=== PATIENT | female | born 1950 | race Caucasian/White ===

== ENCOUNTER 2019-12-01 10:25 | Emergency (ER) | payer MEDICARE, SELFPAY ==
[2019-12-01 10:39] VITALS: BP 150/60; PULSE 73; RESP 18; TEMP 35.7
--- NOTE | 2019-12-01 10:52 | ED.HEATRA ---
HPI - Head Injury General Chief complaint: Head Injury Stated complaint: Head Injury Time Seen by Provider: 12/01/19 10:52 Source: patient and family Mode of arrival: ambulatory History of Present Illness HPI Narrative: Ayah Schmidt is a 69 yo female with a PMH of hypertension high cholesterol and diabetes, who fell this morning in the bathroom about 930. Has had her medications this morning Related Data Home Medications Medication Instructions Recorded Confirmed Magnesium 12/01/19 Multivitamin 12/01/19 Vitamin D 12/01/19 aspirin 12/01/19 fluoxetine mg 12/01/19 lisinopril 12/01/19 lovastatin mg 12/01/19 metformin mg 12/01/19 Allergies Allergy/AdvReac Type Severity Reaction Status Date / Time chlorthalidone Allergy Mild Rash Verified 09/12/18 15:17 codeine Allergy Unknown Verified 04/11/17 11:08 tramadol Allergy Unknown Verified 04/11/17 11:08 Review of Systems Review of Systems: Narrative: CONSTITUTIONAL: Denies fever, chills, sweats. EYES: Denies visual changes, redness, discharge. ENT: Denies rhinorrhea, congestion, sore throat, otalgia. CARDIOVASCULAR: Denies chest pain, palpitations, edema. RESPIRATORY: Denies dyspnea, wheezing, cough GASTROINTESTINAL: Denies abdominal pain, nausea, vomiting, diarrhea. GENITOURINARY: Denies dysuria, hematuria, abnormal discharge SKIN: Denies rash or itching. Laceration to left side of forehead MUSCULOSKELETAL: Denies acute back pain, joint pain, or myalgia. NEUROLOGIC: Denies numbness, or focal weakness. PSYCHIATRIC: Denies anxiety or depression. PMFSH Family History Family History Other Diabetes mellitus Social History Social History Smoking status: Never smoker Alcohol intake: never Comments At time of signature, I agree with nursing past medical, surgical, social and family history. There is no relevant family history pertinent to the presenting complaint. Exam Narrative: Exam Narrative: GENERAL: This is a well-nourished, well-developed patient, in no apparent distress. HEAD: normocephalic, traumatic. 3 cm less laceration to upper left forehead EYES: PERRL. Sclera clear/white. Vision is grossly intact. EARS: External ears normal, Hearing grossly intact. NOSE: External nose normal with no obvious nasal discharge, nares without redness, no rhinorrhea. THROAT: Mucous membranes moist, posterior pharynx clear. NECK: Neck supple, non-tender CARDIOVASCULAR: Regular rate and rhythm without murmurs, gallops, or rubs. RESPIRATORY: Clear to auscultation. Breath sounds equal bilaterally. No wheezes, rales, or rhonchi. GASTROINTESTINAL: Abdomen soft, non-tender, SKIN: warm, intact with no suspicious lesions or rash, good texture and turgor. NEURO: awake, alert, and oriented to person, place and time. There were no obvious focal neurologic abnormalities. Steady gait EXTREMITIES: Normal range of motion. No edema. BACK: Nontender without deformity or crepitance. Course Course Emergency Course: Laceration to forehead repaired, no tetanus is had 1 in the last year to 2-instructions given for care as well as mental status changes which would require her to go to the emergency room for scan Vital Signs Vital signs: Vital Signs Temperature 96.3 F L 12/01/19 10:39 Pulse Rate 73 12/01/19 10:39 Respiratory Rate 18 12/01/19 10:39 Blood Pressure 150/60 H 12/01/19 10:39 Temperature 96.3 F L 12/01/19 10:39 Pulse Rate 73 12/01/19 10:39 Respiratory Rate 18 12/01/19 10:39 Blood Pressure 150/60 H 12/01/19 10:39 Procedures Laceration Laceration 1: Date: 12/01/19 Time: 11:10 Site: scalp Side (If applicable): left Size (cm): 3 Description: linear Depth: simple, single layer Local Anesthetic: lidocaine 1% and with epi Amount of anesthesia used (mL): 3 =
--- NOTE | 2019-12-01 11:03 | PC.NURSE ---
suture set up was done. at 1054 pre planning advisor at bedside to do sutures.
== END 2019-12-01 11:25 | disposition home or self-care (01) ==
PROVIDERS: Emergency Provider Nurse Practitioner
DX: S01.01XA Laceration without foreign body of scalp, initial encounter (principal); W19.XXXA Unspecified fall, initial encounter; S09.90XA Unspecified injury of head, initial encounter; E78.00 Pure hypercholesterolemia, unspecified; I10 Essential (primary) hypertension; E11.9 Type 2 diabetes mellitus without complications
CPT/HCPCS: 12002; 99213; G0463

== ENCOUNTER 2022-08-26 17:35 | Inpatient (IN) | payer MEDICARE, SELFPAY ==
[2022-08-26] VITALS (13 sets, daily range): BP systolic 105–166; BP diastolic 63–90; PULSE 59–79; RESP 12–93; TEMP 36.4–36.8; O2SAT 16–100; BMI 16.7
--- NOTE | ~2022-08-26 | XR_ITS ---
EXAMINATION: XR barium swallow modified DATE: 08/28/2022 10:57 INDICATION: Dysphagia. TECHNIQUE: The patient was given barium-containing material of multiple consistencies to swallow by t lalita speech pathologist while I performed fluoroscopy. Dose-area product was 0.83 Gy-cm2. 2.1 minutes f luoroscopy time FINDINGS: Oral Stage: Reduced labial seal/lip tension and reduced lingual movement Pharyngeal Phase: Reduced laryngeal elevation and laryngeal abduction Reduced tongue base retraction Reduced pharyngeal squeeze Vallecular and piriform sinus and pharyngeal wall residue Cervical/Esophageal Stage: Within functional limits IMPRESSION: Modified esophagram findings as above. Please refer to the speech therapy report [facility] Reviewed, dictated and finalized at [facility]. Reviewed, dictated and finalized at location A. IMPRESSION: Modified esophagram findings as above. Please refer to the speech t herapy report for specific recommendations.
--- NOTE | ~2022-08-26 | XR_ITS ---
XR chest 2V DATE: 08/26/2022 18:58 INDICATION: Transient alteration of awareness. Weakness. TECHNIQUE: AP and lateral views. COMPARISON: None FINDINGS: Heart size is within normal range. Mild aortic unfolding. No hilar or mediastinal enlargeme nt. No pulmonary infiltrate or consolidation, pleural effusion or pulmonary vascular congestion or pn eumothorax. There is mild to moderate levoscoliosis of the thoracic spine. IMPRESSION: No active cardiopulmonary disease Reviewed, dictated and finalized at location A.
--- NOTE | ~2022-08-26 | US_ITS ---
EXAMINATION: US abdomen limited DATE: 08/29/2022 15:05 INDICATION: abnormal liver function tests TECHNIQUE: Multiple grayscale and Doppler ultrasound images of limited portions of the abdomen were o btained. COMPARISON: None available. FINDINGS: Exam limited by bowel gas, habitus, and mobility. Pancreas not visualized. The liver is nor mal with normal echogenicity and echotexture, although views were limited due to intercostal windows. No surface nodularity. Normal hepatopetal flow in the main portal vein. The gallbladder is normal wi th no abnormal wall thickening, pericholecystic fluid or stones. A left lateral decubitus view could not be obtained. The common bile duct measures 3 mm. There was no sonographic Mejía sign. IMPRESSION: Normal limited abdominal ultrasound findings. Reviewed, dictated and finalized at location K. IDER RELATIONS CONSULTANT
--- NOTE | ~2022-08-26 | XR_ITS ---
EXAMINATION: XR abdomen/kub 1V DATE: 08/30/2022 15:00 INDICATION: Abdominal distention pain. TECHNIQUE: A supine view of the abdomen was obtained. COMPARISON: None. FINDINGS: There is a large volume of stool in the colon. Stool distends the rectum. There is distenti on of the sigmoid and descending colon. The small bowel is normal in caliber. IMPRESSION: 1. Distended colon with large volume of stool, likely stool impaction. Reviewed, dictated and finalized at location A. GER
--- NOTE | ~2022-08-26 | CT_ITS ---
EXAMINATION: CT brain wo con DATE: 08/26/2022 22:31 INDICATION: Altered mental state. Hallucinations, increased sleeping. TECHNIQUE: Computed tomography (CT) of the head was performed without intravenous contrast. The mA wa s adjusted according to patient size. Iterative reconstruction technique was employed. Exam dose: 60 5.33 mGy-cm total exam DLP. COMPARISON: None FINDINGS: Vertebral artery, basilar artery and bilateral carotid siphon internal carotid artery calci fications. There is patchy nonspecific diminished attenuation of the cerebral white matter, likely due to chroni c small vessel ischemic changes. There is moderate central and cortical cerebral and mild cerebellar volume loss No intracranial mass lesion or hemorrhage or cerebrovascular accident, midline shift or mass effect i s noted. No subdural or epidural hematoma. No fracture or bone destruction of the cranial vault. Limited development of the right maxillary sinus. Normal left mastoid air cells. Included paranasal s inuses are unremarkable. IMPRESSION: Cerebral atherosclerosis and chronic small vessel ischemic changes of cerebral white mat ter Moderate cerebral and mild cerebellar volume loss No acute intracranial finding Reviewed, dictated and finalized at [facility]. Reviewed, dictated and finalized at location A. IMPRESSION: Cerebral atherosclerosis and chronic small vessel ischemic changes of cerebral white matter Moderate cerebral and mild cerebellar volume loss No acute intracranial finding
--- NOTE | 2022-08-26 18:08 | ECG_ITS ---
Measurements Intervals [place] Rate: 79 P: 87 NE: 178 QRS: -50 QRSD: 144 T: 102 QT: 403 QTc: 463 Interpretive Statements SINUS RHYTHM LEFT AXIS DEVIATION LEFT BUNDLE BRANCH BLOCK ANTEROSEPTAL INFARCT OR DUE TO LBBB BASELINE ARTIFACT- I, II, III, AVR, AVL, AVF ABNORMAL ECG NO PREVIOUS ECG AVAILABLE FOR COMPARISON Electronically Signed On 08-26-2022 19:07:05 CDT by Audi Padron D.O.
[2022-08-26 19:01] LABS: Basophils Absolute Auto 0.1 K/mm3 (0.0-0.1); Basophils Percent Auto 1.1 % (0.2-1.2); Eosinophils Absolute Auto 0.1 K/mm3 (0-0.3); Eosinophils Percent Auto 1.6 % (0-4.4); Hematocrit 37.2 % (37.0-47.0); Hemoglobin 12.3 g/dL (12.0-15.0); Immature Granulocyte Absolute 0.01 K/mm3 (0.00-0.031); Immature Granulocyte Percent A 0.2 % (0-0.5); Lymphocytes Absolute Auto 1.44 K/mm3 (0.9-3.2); Lymphocytes Percent Auto 22.5 % (18.3-44.2); Mean Corpuscular HGB Conc 33.1 g/dl (32-36); Mean Corpuscular Hemoglobin 32.4 pg (26-34); Mean Corpuscular Volume 97.9 fl (80-100); Mean Platelet Volume 10.3 fl (7.4-10.4); Monocytes Absolute Auto 0.5 K/mm3 (0.1-0.6); Monocytes Percent Auto 7.3 % (2.6-8.5); Neutrophils Absolute Auto 4.3 K/mm3 (1.3-6.7); Neutrophils Percent Auto 67.3 % (45.5-73.1); Platelet Count Result 175 k/mm3 (150-375); White Blood Count 6.4 K/mm3 (4.5-10.0)
[2022-08-26 19:11] LABS: Alanine Aminotransferase 37 U/L (6-35); Albumin Level 4.6 g/dL (3.5-5.1); Alkaline Phosphatase 112 U/L (38-126); Anion Gap 12 mmol/L (8-16); Aspartate Amino Transferase 44 U/L (14-36); Bilirubin,Total 0.9 mg/dL (0.2-1.3); Blood Urea Nitrogen 34 mg/dL (7-17); Calcium 9.7 mg/dL (8.4-10.2); Carbon Dioxide 31 mmol/L (22-30); Chloride 100 mmol/L (98-107); Estimated CRCL calculation 46 ml/min; Estimated Glomerular Filt Rate > 60; Glucose 91 mg/dL (65-110); Potassium 4.1 mmol/L (3.4-5.0); Sodium 143 mmol/L (137-145)
--- NOTE | 2022-08-26 19:15 | ED.AMS ---
HPI - Altered Mental Status General Chief Complaint: Altered Mental Status Stated Complaint: Sleeping Lots, Hallucinations Time Seen by Provider: 08/26/22 18:29 History of Present Illness HPI narrative: Patient is a 72-year-old female with a history of Parkinson's disease, hypertension, hyper lipidemia presenting with altered mental status. Patient's reports that she was diagnosed with a UTI about 5 days ago. She was discharged home on Keflex which she has been taking as prescribed. Patient's states that she continues to sleep a lot and continues to mumble random things that do not make sense. States that he is concerned that she has continued to decline over the last several weeks. They are concerned that she continues to have a UTI. Denies chest pain, abdominal pain, vomiting, diarrhea, dysuria. No focal weakness or numbness. Patient struggles to speak at baseline. Related Data Home Medications Medication Instructions Recorded Confirmed acetaminophen 500 mg capsule 500 mg PO Q6H PRN Pain (Scale 06/03/22 08/26/22 Score 1-3) ascorbate calcium (vitamin C) 500 500 mg PO DAILY 06/03/22 08/26/22 mg tablet aspirin 81 mg capsule 81 mg PO DAILY 06/03/22 08/26/22 biotin 10,000 mcg capsule 1,000 mcg PO DAILY 06/03/22 08/26/22 cholecalciferol (vitamin D3) 25 25 mcg PO DAILY 06/03/22 08/26/22 mcg (1,000 unit) capsule fluoxetine 40 mg capsule 40 mg PO DAILY 06/03/22 08/26/22 loratadine 10 mg tablet 10 mg PO DAILY 06/03/22 08/26/22 losartan 25 mg tablet 25 mg PO DAILY 06/03/22 08/26/22 lovastatin 40 mg tablet 40 mg PO DAILY 06/03/22 08/26/22 magnesium 250 mg tablet 400 mg PO DAILY 06/03/22 08/26/22 pdznodtazuri-Qf-uvov-minerals 18 1 tablet PO DAILY 06/03/22 08/26/22 mg-0.4 mg tablet Allergies Allergy/AdvReac Type Severity Reaction Status Date / Time chlorthalidone Allergy Mild Rash Verified 06/03/22 11:21 codeine Allergy Unknown Rash Verified 06/03/22 11:21 tramadol Allergy Unknown Rash Verified 06/03/22 11:21 Review of Systems Review of Systems: All systems reviewed & are unremarkable except as noted in HPI and below PMFSH Family History Family History Other Diabetes mellitus Social History Social History Smoking status: Never smoker Alcohol intake: never Substance use: never Spiritual care concerns: No Exam Narrative: GENERAL: Frail elderly female laying in bed, no acute distress HEAD: Normocephalic, atraumatic. EYES: PERRLA and EOMI. ENT: Nares clear, no rhinorrhea or epistaxis. Mucous membranes moist. NECK: Supple. CHEST: Clear to auscultation. No respiratory distress. HEART: Regular rate and rhythm. No murmur heard. Normal peripheral pulses. ABDOMEN: Soft, nontender, nondistended, normal active bowel sounds. EXTREMITIES: Normal range of motion. No edema. SKIN: Warm, dry, no rash. NEURO: Moves all extremities spontaneously, some dysarthria that is baseline PSYCH: Normal mood and affect. Course Vital Signs Vital signs: Vital Signs Temperature 98.3 F 08/26/22 17:43 Pulse Rate 79 08/26/22 17:43 Respiratory Rate 20 08/26/22 17:43 Blood Pressure 105/65 08/26/22 17:43 Pulse Oximetry 93 08/26/22 17:43 Oxygen Delivery Room Air 08/26/22 17:43 Temperature 98.2 F 08/29/22 14:00 Pulse Rate 80 08/29/22 14:00 Respiratory Rate 18 08/29/22 14:00 Blood Pressure 103/48 L 08/29/22 14:00 Pulse Oximetry 97 08/29/22 14:00 Oxygen Delivery Room Air 08/29/22 07:45 MDM - Altered Mental Status MDM Narrative Medical decision making narrative: Patient is a 72-year-old female presenting with altered mental status. Vitals within normal limits. Exam remarkable for the above. Blood work is noncontributory. UA does not indicate a UTI. Sounds like patient has become progressively weaker and her is having difficulty taking care of
[2022-08-26] MEDS: SODIUM CHLORIDE 0.9% IV 1,000 ML 999 ML IV CONT (19:28)
[2022-08-26 20:55] LABS: Appearance Urine Clear (Clear); Bilirubin Urine Negative (Negative); Blood Urine Negative (Negative); Color Urine Yellow (Yellow); Glucose Urine UA Negative (Negative); Ketones Urine Trace mg/dL (Negative); Leukocyte Esterase Ur Negative LEU/UL (Negative); Nitrate Urine Negative (Negative); Protein Urine Negative (Negative); Specific Grav Ur 1.025 (1.001-1.035); Urobilinogen Urine 0.2 mg/dL (<2.0)
[2022-08-26 20:59] LABS: Mucus Urine Rare /lpf; RBC Urine 0-2 /hpf (0-2); Squamous Epithelial Cell Urine Rare /hpf (Few); WBC Urine 0-3 /hpf
[2022-08-26 21:06] LABS: Add Urine Microscopic? YES
--- NOTE | 2022-08-26 22:37 | PM.IMHP ---
H&P: HPI History of Present Illness Date/Time: 08/26/22 22:37 Chief Complaint: generalized weakness Narrative: This is a 72-year-old female with past medical history significant for Parkinson's disease, dementia, patient recently treated for urinary tract infection as per he is noted patient has had overall decline in functioning with generalized weakness unable to walk unable to eat has had poor per orally intake in the last few days or so has noted weight loss as well and has been laying in bed for prolonged periods of time she is about to end a course of Keflex which he was prescribed for urinary tract infection. history has been obtained mainly from who is at bedside patient has not been able to give any history. Preliminary workup has been essentially nonrevealing. a repeat urinalysis was clean a chest x-ray was clear. IMPRESSION: No active cardiopulmonary disease? CT of the head was reported as: IMPRESSION:? Cerebral atherosclerosis and chronic small vessel ischemic changes of cerebral white matter Moderate cerebral and mild cerebellar volume loss No acute intracranial finding Review of Systems Review of Systems: ROS unobtainable: Yes unobtainable due to mental status ( lethargic) [facility], [facility] Family History Family History Other Diabetes mellitus Social History Social History Smoking status: Never smoker Alcohol intake: never Substance use: never Spiritual care concerns: No Meds Home Medications and Allergies Home Medications Medication Instructions Recorded Confirmed Type acetaminophen 500 mg capsule 500 mg PO Q6H PRN Pain (Scale 06/03/22 08/26/22 History Score 1-3) ascorbate calcium (vitamin C) 500 500 mg PO DAILY 06/03/22 08/26/22 History mg tablet aspirin 81 mg capsule 81 mg PO DAILY 06/03/22 08/26/22 History biotin 10,000 mcg capsule 1,000 mcg PO DAILY 06/03/22 08/26/22 History cholecalciferol (vitamin D3) 25 25 mcg PO DAILY 06/03/22 08/26/22 History mcg (1,000 unit) capsule fluoxetine 40 mg capsule 40 mg PO DAILY 06/03/22 08/26/22 History loratadine 10 mg tablet 10 mg PO DAILY 06/03/22 08/26/22 History losartan 25 mg tablet 25 mg PO DAILY 06/03/22 08/26/22 History lovastatin 40 mg tablet 40 mg PO DAILY 06/03/22 08/26/22 History magnesium 250 mg tablet 400 mg PO DAILY 06/03/22 08/26/22 History mxdcfrihunwu-Zf-pdja-minerals 18 1 tablet PO DAILY 06/03/22 08/26/22 History mg-0.4 mg tablet Allergies Allergy/AdvReac Type Severity Reaction Status Date / Time chlorthalidone Allergy Mild Rash Verified 06/03/22 11:21 codeine Allergy Unknown Rash Verified 06/03/22 11:21 tramadol Allergy Unknown Rash Verified 06/03/22 11:21 Vital Signs Vital Signs - 24 hr 08/26/22 17:43 08/26/22 19:44 08/26/22 20:00 Temperature 98.3 F Pulse Rate 79 79 65 Respiratory Rate 20 12 14 Blood Pressure 105/65 134/71 141/90 H Pulse Oximetry 93 94 100 Oxygen Delivery Room Air 08/26/22 20:15 Temperature Pulse Rate 61 Respiratory Rate 16 Blood Pressure 165/73 H Pulse Oximetry 100 Oxygen Delivery Exam Narrative: patient is laying in a stretcher Const: General: comfortable, no acute distress, well developed, alert, awake, ill appearing chronically, lethargic and cachectic Nutritional Appearance: average body habitus Orientation/consciousness: patient oriented x3 HENMT: Head: normal to inspection, normocephalic and atraumatic Ears: hearing grossly normal bilaterally Face/Nose/Sinus: normal facial exam Face and sinus: normal facial exam Eyes: General: appearance normal, both eyes and all related structures Pupils: Equal, round and reactive pupils present EOM: EOMs intact bilaterally Neck: Neck: full ROM, no lymphadenopathy and no JVD Thyroid: thyroid normal Lymphatic: no lymphadenopathy noted Resp: Effort & Inspection: normal respiratory effort and
[2022-08-26 22:47] LABS: SARS-CoV-2 RNA PCR Negative
--- NOTE | 2022-08-26 23:23 | ADMGEN ---
This patient, Ayah Schmidt, was admitted to Medical Room [facility]- at 2305. Patient/family oriented to hospital policies and general routines including ID bracelet, bed and alarms, visiting hours, pain management, procedures, bathroom and other care routines, personal items, smoking policy, room service/diet, and visiting hours. Information on how to activate the Rapid Response Team has been discussed. Patient/Family are encouraged to report perceived risks to care and to ask questions if they do not understand what they are told or what they should do.
[2022-08-27 06:07] VITALS: BP 136/74; PULSE 66; RESP 14; TEMP 36.4; O2SAT 97
[2022-08-27 11:30] LABS: Creatine Kinase 43 U/L (30-135)
--- NOTE | 2022-08-27 12:00 | PM.IMPN ---
Progress Note: A&P Assessment and Plan (1) Failure to thrive: Status: Acute Assessment and Plan: patient with overall decline poor per orally intake will likely benefit from a sniff placement as family unable to care for her at home supportive care PT OT consult 07/27/2022 interval history: patient remains weak and tired, apprears chronically sick and undernourish, thinking she may statin related myopathy however her CK level is normal,, will have PT OT evaluate the as well as speech therapy for swallow study, will consult dietitian patient may need nutritional supplement, there is also concern patient may have malignancy and may need further evaluation, and to monitor (2) Dysphagia: Code(s): R13.10 - Dysphagia, unspecified Status: Acute Assessment and Plan: patient it is every seen pureed but has to be the right consistency will obtain a speech eval (3) Protein calorie malnutrition: Code(s): E46 - Unspecified protein-calorie malnutrition Status: Acute Assessment and Plan: poor per orally intake will do a calorie count (4) Dementia: Code(s): F03.90 - Unspecified dementia, unspecified severity, without behavioral disturbance, psychotic disturbance, mood disturbance, and anxiety Status: Acute Assessment and Plan: patient with advanced dementia however on no meds (5) Wheelchair bound: Code(s): Z99.3 - Dependence on wheelchair Status: Acute Assessment and Plan: functional quad Subjective Date/time seen: Chief Complaint: ?generalized weakness HPI-Narrative: ?This is a 72-year-old female with past medical history significant for Parkinson's disease, dementia, patient recently treated for urinary tract infection as per he is noted patient has had overall decline in functioning with generalized weakness unable to walk unable to eat has had poor per orally intake in the last few days or so has noted weight loss as well and has been laying in bed? for prolonged periods of time she is about to? end a course of Keflex which he was prescribed for urinary tract infection. history has been obtained mainly from who is at bedside patient has not been able to give any history.? Preliminary workup has been essentially nonrevealing. a repeat urinalysis was clean a chest x-ray was clear. IMPRESSION: No active cardiopulmonary disease? ?CT of the head was reported as: IMPRESSION:? Cerebral atherosclerosis and chronic small vessel ischemic changes of cerebral white matter Moderate cerebral and mild cerebellar volume loss No acute intracranial finding 07/27/2022 interval history: patient remains weak and tired, apprears chronically sick and undernourish, thinking she may statin related myopathy however her CK level is normal,, will have PT OT evaluate the as well as speech therapy for swallow study, will consult dietitian patient may need nutritional supplement, there is also concern patient may have malignancy and may need further evaluation, and to monitor Review of Systems Review of Systems: ROS unobtainable: Yes unobtainable due to mental status ( lethargic) Exam Narrative: appears under nourished Patient is comfortable, NAD HEENT: eyes are clear and none icteric LUNGS: normal respiratory effort ABD: not distended Lower extremities: no edema SKIN: nonjaundiced Neuro: grossly intact. Objective Data Vital Signs Vital Signs: Vital Signs - 24 hr 08/26/22 17:43 08/26/22 19:44 08/26/22 20:00 Temperature 98.3 F Pulse Rate 79 79 65 Respiratory Rate 20 12 14 Blood Pressure 105/65 134/71 141/90 H Pulse Oximetry 93 94 100 Oxygen Delivery Room Air 08/26/22 20:15 08/26/22 20:30 08/26/22 20:45 Temperature Pulse Rate 61 59 L 70 Respiratory Rate 16 15 14 Blood Pressure 165/73 H 137/84 148/80 H Pulse Oximetry 100 100 Oxygen Delivery 08/26/22 21:00 08/26/22 21:15 08/26/22 21:30 Temperature Pu
--- NOTE | 2022-08-27 12:57 | PCSTNOTE ---
Bedside swallow evaluation. Patient cooperative but distractible and unable to provide reliable information about her prior level. Patient showed no signs of aspiration with pureed consistency by spoon. Patient coughed after 3 ml spoonful of water and also after uncontrolled water bolus from cup Patient states she is thirsty and wants to drink a lot of liquids. Recommendation: mildly thickened liquids (level 2) and soft and bite sized diet (level 6). Patient needs assistance during meals as she has difficulty feeding herself. Modified barium swallow study recommended. Thank you for the referral of this patient.
[2022-08-27 14:23] VITALS: BMI 16.7
[2022-08-27 14:24] VITALS: BP 124/72; PULSE 75; RESP 14; TEMP 36.7; O2SAT 96
--- NOTE | 2022-08-27 15:06 | PCNSR ---
On 08/27/22, the student, Phoenix Aiken, provided care and completed [facility] [place] documentation on this patient. I have reviewed the student's documentation and agree with the findings.
[2022-08-27 21:39] VITALS: BP 143/70; PULSE 68; RESP 18; TEMP 36.2; O2SAT 96
[2022-08-28 03:40] LABS: Glucose Point of Care 70 mg/dl (65-105)
[2022-08-28 04:50] LABS: Glucose Point of Care 68 mg/dl (65-105)
--- NOTE | 2022-08-28 05:00 | PC.NURSE ---
Checked patients blood sugar @ 0336 due to pt being NPO for several hours and blood sugar was 70, Dr. Kovacs was paged three seperate times with no response. I then rechecked patients blood sugar at 0446 and it was 68, was paged again with no response.
[2022-08-28] MEDS: DEXTROSE 50% 25 GM/50 ML SYRINGE IV PUSH (05:23)
[2022-08-28 06:00] VITALS: BP 119/64; PULSE 69; RESP 18; TEMP 36.2; O2SAT 96
[2022-08-28 06:02] LABS: Glucose Point of Care 137 mg/dl (65-105)
[2022-08-28] MEDS: DEXTROSE 10% 1,000 ML 65 ML IV CONT (06:12)
[2022-08-28 10:18] LABS: Anion Gap 10 mmol/L (8-16); Blood Urea Nitrogen 26 mg/dL (7-17); Calcium 9.1 mg/dL (8.4-10.2); Carbon Dioxide 30 mmol/L (22-30); Chloride 100 mmol/L (98-107); Estimated CRCL calculation 44 ml/min; Estimated Glomerular Filt Rate > 60; Glucose 134 mg/dL (65-110); Potassium 3.5 mmol/L (3.4-5.0); Sodium 140 mmol/L (137-145)
--- NOTE | 2022-08-28 11:40 | PCSTNOTE ---
Modified barium swallow study. Patient alert and attentive. Reduce labial and lingual strength and coordination, reduced pharyngeal elevation and vocal fold adduction. No penetration or aspiration observed. Patient showed possible fatigue factor by 4th trial. Current diet texture of pureed and liquid consistency of moderately thickened (level 3, honey) remains appropriate. However, thick and sticky pureed foods should be thinned slightly or avoided. This includes items such as mashed potatoes, oatmeal, and similar textures. Strict adherence to swallowing precautions recommended. No further speech therapy recommended at this time, as patient is at baseline. Thank you for the referral of this patient.
--- NOTE | 2022-08-28 12:01 | PM.IMPN ---
Progress Note: A&P Assessment and Plan (1) Failure to thrive: Status: Acute Assessment and Plan: patient with overall decline poor per orally intake will likely benefit from a sniff placement as family unable to care for her at home supportive care PT OT consult 07/28/2022 interval history: patient remains weak and tired, apprears chronically sick and undernourish, thinking she may statin related myopathy however her CK level is normal,, will have PT OT evaluate the as well as speech therapy for swallow study today patient had MBS study patient is able to eat modified diet to help her swallow, , will consult dietitian patient may need nutritional supplement, there is also concern patient may have malignancy and may need further evaluation, and will continue to monitor (2) Dysphagia: Code(s): R13.10 - Dysphagia, unspecified Status: Acute Assessment and Plan: patient it is every seen pureed but has to be the right consistency will obtain a speech eval (3) Protein calorie malnutrition: Code(s): E46 - Unspecified protein-calorie malnutrition Status: Acute Assessment and Plan: poor per orally intake will do a calorie count (4) Dementia: Code(s): F03.90 - Unspecified dementia, unspecified severity, without behavioral disturbance, psychotic disturbance, mood disturbance, and anxiety Status: Acute Assessment and Plan: patient with advanced dementia however on no meds (5) Wheelchair bound: Code(s): Z99.3 - Dependence on wheelchair Status: Acute Assessment and Plan: functional quad Subjective Date/time seen: 08/28/22 12:01 07/28/2022 interval history: patient remains weak and tired, apprears chronically sick and undernourish, thinking she may statin related myopathy however her CK level is normal,, will have PT OT evaluate the as well as speech therapy for swallow study today patient had MBS study patient is able to eat modified diet to help her swallow, , will consult dietitian patient may need nutritional supplement, there is also concern patient may have malignancy and may need further evaluation, and will continue to monitor Review of Systems Review of Systems: ROS unobtainable: Yes unobtainable due to mental status ( lethargic) Exam Narrative: appears under nourished Patient is comfortable, NAD HEENT: eyes are clear and none icteric LUNGS: normal respiratory effort ABD: not distended Lower extremities: no edema SKIN: nonjaundiced Neuro: grossly intact. Objective Data Vital Signs Vital Signs: Vital Signs - 24 hr 08/27/22 14:24 08/27/22 14:48 08/27/22 21:39 Temperature 98.1 F 97.2 F L Pulse Rate 75 68 Respiratory Rate 14 18 Blood Pressure 124/72 143/70 H Pulse Oximetry 96 96 Oxygen Delivery Room Air 08/27/22 21:00 08/28/22 06:00 08/28/22 08:20 Temperature 97.1 F L Pulse Rate 69 Respiratory Rate 18 Blood Pressure 119/64 Pulse Oximetry 96 Oxygen Delivery Room Air Room Air Intake/Output Intake/Output: Intake & Output 08/25/22 08/26/22 08/27/22 08/28/22 23:59 23:59 23:59 23:59 Intake Total 1000 460 Output Total 100 450 Balance 900 10 Meds/Results Medications: Active Medications Generic Name Dose Route Start Last Admin Trade Name Freq PRN Reason Stop Dose Admin Acetaminophen 500 mg 08/27/22 10:39 Acetaminophen 500 Mg Tablet PO Q6H PRN Pain (Scale Score 1-3) Ascorbic Acid 500 mg 08/28/22 09:00 08/28/22 08:15 Ascorbic Acid 500 Mg Tablet PO Not Given DAILY ROBYN Aspirin 81 mg 08/27/22 09:00 08/28/22 08:15 Aspirin 81 Mg Chewable Tablet PO 09/27/22 08:59 Not Given DAILY ROBYN Dextrose 12.5 gm 08/28/22 05:01 08/28/22 05:23 Dextrose 50% 25 Gm/50 Ml Syringe IV PUSH 12.5 gm PRN PRN Administration Hypoglycemia Protocol Fluoxetine HCl 40 mg 08/28/22 09:00 08/28/22 08:15 Fluoxetine Hcl 20 Mg Capsule PO
[2022-08-28 12:26] LABS: Glucose Point of Care 101 mg/dl (65-105)
[2022-08-28 14:00] VITALS: BP 115/67; PULSE 76; RESP 14; TEMP 36.8; O2SAT 98
[2022-08-28 18:04] LABS: Glucose Point of Care 159 mg/dl (65-105)
[2022-08-28 21:31] VITALS: BP 101/67; PULSE 74; RESP 18; TEMP 36.5; O2SAT 95
[2022-08-28 22:00] VITALS: BP 143/78; PULSE 68; RESP 18; TEMP 36.2; O2SAT 96
[2022-08-28 22:06] LABS: Glucose Point of Care 246 mg/dl (65-105)
[2022-08-29 01:53] LABS: Glucose Point of Care 205 mg/dl (65-105)
[2022-08-29 06:00] VITALS: BP 121/65; PULSE 65; RESP 20; TEMP 36.6; O2SAT 98
[2022-08-29 06:36] LABS: Hematocrit 35.3 % (37.0-47.0); Hemoglobin 11.6 g/dL (12.0-15.0); Mean Corpuscular HGB Conc 32.9 g/dl (32-36); Mean Corpuscular Hemoglobin 32.1 pg (26-34); Mean Corpuscular Volume 97.8 fl (80-100); Mean Platelet Volume 10.3 fl (7.4-10.4); Platelet Count Result 143 k/mm3 (150-375); Red Blood Count 3.61 M/mm3 (4.2-5.4); Red Cell Distribution Width 12.9 % (11.5-14.5)
[2022-08-29 06:38] LABS: Glucose Point of Care 110 mg/dl (65-105)
[2022-08-29 06:53] LABS: Magnesium 1.9 mg/dL (1.6-2.3)
[2022-08-29 08:38] LABS: Glucose Point of Care 104 mg/dl (65-105)
[2022-08-29] MEDS: CHOLECALCIFEROL 1,000 UNITS TABLET 1000 UNITS PO (10:16)
[2022-08-29] MEDS: FLUoxetine HCL 20 MG CAPSULE 40 MG PO (10:16)
[2022-08-29] MEDS: ASPIRIN 81 MG CHEWABLE TABLET PO (10:16)
[2022-08-29] MEDS: THERAPEUTIC MULTIVITAMINS/MINERALS TAB (*BKC) 1 TABLET PO (10:16)
[2022-08-29] MEDS: MAGNESIUM OXIDE 400 MG TABLET PO (10:16)
[2022-08-29] MEDS: LOSARTAN POTASSIUM 25 MG TABLET PO (10:16)
[2022-08-29] MEDS: ASCORBIC ACID 500 MG TABLET PO (10:16)
[2022-08-29] MEDS: LORATADINE 10 MG TABLET PO (10:17)
[2022-08-29] MEDS: LOVASTATIN 20 MG TABLET 40 MG PO (10:17)
--- NOTE | 2022-08-29 11:07 | PM.IMPN ---
Progress Note: A&P Assessment and Plan (1) Failure to thrive: Status: Acute Assessment and Plan: patient with overall decline poor per orally intake will likely benefit from a sniff placement as family unable to care for her at home supportive care PT OT consult 08/28/2022 interval history: patient remains weak and tired, apprears chronically sick and undernourish, thinking she may statin related myopathy however her CK level is normal,, will have PT OT evaluate the as well as speech therapy for swallow study today patient had MBS study patient is able to eat modified diet to help her swallow, , will consult dietitian patient may need nutritional supplement, there is also concern patient may have malignancy and may need further evaluation, and will continue to monitor 08/29/22: A better with pureed diet. More alert. Check TSH and morning cortisol all. Given abnormal LFTs checked hepatitis screen and right upper quadrant ultrasound. Given relatively high dose fluoxetine and no prior history of mental illness prior to 2 years ago, discussed with family and initiate trial of medication reduction. (2) Parkinson disease: Code(s): G20 - Parkinson's disease Status: Acute Assessment and Plan: Discussed with family at bedside that dysphagia is a sign of end-stage parkinsonism. Discussed that palliative care or hospice would be appropriate when she reaches the point of being unable to tolerate pureed diet. Currently however she is doing relatively well with a pureed diet. Discussed the because she is already unable to get out of bed on her own and must use a wheelchair when helped out of bed she is likely not a candidate for rehab services as an outpatient. Discussed the relentlessly progressive nature of Parkinson's disease. (3) Dysphagia: Code(s): R13.10 - Dysphagia, unspecified Status: Acute Assessment and Plan: Likely due to advanced Parkinson's disease not responsive to carbidopa and levodopa or amantadine August 29 doing better with pureed diet. (4) Protein calorie malnutrition: Code(s): E46 - Unspecified protein-calorie malnutrition Status: Acute Assessment and Plan: Continue pureed diet. (5) Wheelchair bound: Code(s): Z99.3 - Dependence on wheelchair Status: Acute Assessment and Plan: functional quad Subjective Date/time seen: 08/29/22 11:07 Elderly female with history of Parkinson's disease has declined over the last several months. She has not been able to walk for the last 18 months. She is incontinent of urine about half the time. Continent of stool. Not able to get out of bed by herself. Decreased appetite and weight loss. Some difficulty with swallowing. Doing better with pureed diet. Ate all of her breakfast this morning. Has remained alert and oriented to person place and time except when she had a UTI which she was treated a couple of weeks ago through [facility]. She did have a tria of amantadine in the recent past and had adverse effects from that with increased hallucinations. Has baseline hallucinations both visual and auditory. But no memory issues. Talks in her sleep. Has tried carbidopa levodopa through [facility] physician's Neurology. No benefit from that in the past. She was treated with Prozac 40 mg daily for depression starting 2 years ago or so. Her mood seems to have improved since then. No attempt to taper or discontinue the medicine since initiation. No prior history of mental illness. 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 There also far from her family most of home live in [place]. Review of Systems Review of Systems: All systems reviewed & are unremarkable except as noted in HPI and below Exam Narrative: Frail elderly female lying comfortably in her hospital
[2022-08-29 11:58] LABS: Glucose Point of Care 191 mg/dl (65-105)
[2022-08-29 14:00] VITALS: BP 103/48; PULSE 80; RESP 18; TEMP 36.8; O2SAT 97
[2022-08-29 16:44] LABS: Glucose Point of Care 226 mg/dl (65-105)
[2022-08-29 20:41] VITALS: BP 105/53; PULSE 78; RESP 18; TEMP 36.5; O2SAT 98
[2022-08-30 00:48] LABS: Glucose Point of Care 192 mg/dl (65-105)
[2022-08-30 05:23] LABS: Hemoglobin 11.3 g/dL (12.0-15.0); Mean Corpuscular HGB Conc 32.3 g/dl (32-36); Mean Corpuscular Volume 99.2 fl (80-100); Mean Platelet Volume 10.2 fl (7.4-10.4); Platelet Count Result 154 k/mm3 (150-375); Red Blood Count 3.53 M/mm3 (4.2-5.4); Red Cell Distribution Width 13.1 % (11.5-14.5); White Blood Count 7.3 K/mm3 (4.5-10.0)
[2022-08-30 05:26] VITALS: BP 95/47; PULSE 72; RESP 18; TEMP 36.6; O2SAT 97
[2022-08-30 06:07] LABS: Alanine Aminotransferase 45 U/L (6-35); Albumin Level 3.7 g/dL (3.5-5.1); Alkaline Phosphatase 100 U/L (38-126); Anion Gap 10 mmol/L (8-16); Aspartate Amino Transferase 43 U/L (14-36); Bilirubin,Total 0.6 mg/dL (0.2-1.3); Blood Urea Nitrogen 52 mg/dL (7-17); Calcium 8.9 mg/dL (8.4-10.2); Carbon Dioxide 30 mmol/L (22-30); Chloride 102 mmol/L (98-107); Estimated CRCL calculation 39 ml/min; Estimated Glomerular Filt Rate > 60; Glucose 142 mg/dL (65-110); Magnesium 2.1 mg/dL (1.6-2.3); Potassium 4.1 mmol/L (3.4-5.0); Sodium 142 mmol/L (137-145)
[2022-08-30 06:39] LABS: Folic Acid > 20.0 ng/mL (2.76->20); Vitamin B12 > 1000.0 pg/mL (239-931)
[2022-08-30 06:57] LABS: Hepatitis B Surface Antigen Negative (Negative)
[2022-08-30 07:02] LABS: HAV RESULT Negative (Negative)
[2022-08-30 08:15] VITALS: BP 106/52; PULSE 73; RESP 14; TEMP 36.9; O2SAT 98
[2022-08-30] MEDS: ASPIRIN 81 MG CHEWABLE TABLET PO (08:48)
[2022-08-30] MEDS: ASCORBIC ACID 500 MG TABLET PO (08:48)
[2022-08-30] MEDS: LOVASTATIN 20 MG TABLET 40 MG PO (08:48)
[2022-08-30] MEDS: LOSARTAN POTASSIUM 25 MG TABLET PO (08:48)
[2022-08-30] MEDS: CHOLECALCIFEROL 1,000 UNITS TABLET 1000 UNITS PO (08:48)
[2022-08-30] MEDS: FLUoxetine HCL 10 MG CAPSULE PO (08:48)
[2022-08-30] MEDS: MAGNESIUM OXIDE 400 MG TABLET PO (08:48)
[2022-08-30] MEDS: LORATADINE 10 MG TABLET PO (08:48)
[2022-08-30] MEDS: THERAPEUTIC MULTIVITAMINS/MINERALS TAB (*BKC) 1 TABLET PO (09:18)
[2022-08-30 12:17] LABS: Glucose Point of Care 152 mg/dl (65-105)
--- NOTE | 2022-08-30 13:09 | PM.IMPN ---
Progress Note: A&P Assessment and Plan (1) Failure to thrive: Status: Acute Assessment and Plan: Patient with overall decline and poor orally intake prior to admission. Continue supportive care. PT/OT consulted Speech therapy consulted 08/28/2022 patient remains weak and tired, appears chronically sick and undernourish, thinking she may statin related myopathy however her CK level is normal, will consult dietitian patient may need nutritional supplement, there is also concern patient may have malignancy and may need further evaluation, and will continue to monitor 08/29/22: A better with pureed diet. More alert. Check TSH and morning cortisol. Given abnormal LFTs checked hepatitis screen and right upper quadrant ultrasound. Given relatively high dose fluoxetine and no prior history of mental illness prior to 2 years ago, discussed with family and initiate trial of medication reduction. 08/30/2022 patient frail and weak, sitting up in a chair for meals, family reports patient has been eating more and she is tolerating dysphagia diet. TSH 2.34 and within normal limits. Cortisol 16 and within normal limits this morning. Vitamin B12 and folate within normal limits. 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 Patient has been seen by [facility] neurology. Per notes fast progression associated with dementia and early without wheelchair use suggests PSP. Referral to palliative care was recommended by neurologist. (3) Parkinson disease: Code(s): G20 - Parkinson's disease Status: Chronic Assessment and Plan: Chronic, progressive. Patient is with dementia, decreased mobility, and dysphagia. She has been seen by a neurologist at [facility] as above. Patient reportedly did not respond to 1200 mg of levodopa per day. Symptoms thought to be likely to progressive supranuclear palsy per neurology. Recommendations were made to keep the patient comfortable and referral to palliative care as above. During patient's hospital stay it was discussed with family at bedside that dysphagia is a sign of end-stage parkinsonism. Discussed that palliative care or hospice would be appropriate when she reaches the point of being unable to tolerate pureed diet. Currently however she is doing relatively well with a pureed diet. Discussed the because she is already unable to get out of bed on her own and must use a wheelchair when helped out of bed she is likely not a candidate for rehab services as an outpatient. (4) Dysphagia: Qualifiers: Dysphagia type: unspecified Qualified Code(s): R13.10 - Dysphagia, unspecified Code(s): R13.10 - Dysphagia, unspecified Status: Acute Assessment and Plan: Likely due to advanced Parkinson's disease not responsive to carbidopa and levodopa or amantadine 08/30/2022 patient tolerating pureed diet with honey thickened liquids. Continue aspiration precautions. (5) Protein calorie malnutrition: Qualifiers: Protein-calorie malnutrition severity: severe Qualified Code(s): E43 - Unspecified severe protein-calorie malnutrition Code(s): E46 - Unspecified protein-calorie malnutrition Status: Acute Assessment and Plan: Continue pureed diet. Dietary consulted and appreciate recommendations. (6) Wheelchair bound: Code(s): Z99.3 - Dependence on wheelchair Status: Chronic Assessment and Plan: Chronic, continue up to chair for all meals. (7) HTN (hypertension): Code(s): I10 - Essential (primary) hypertension Status: Chronic Assessment and Plan: Chronic, BP 95/647 to 106/52, heart rate 73 Continue losartan, but hold if SBP less than 100 (8) High cholesterol: Code(s): E78.00 - Pure hypercholesterolemia, unspecified Status: Ch
[2022-08-30 14:00] VITALS: BP 104/57; PULSE 73; RESP 14; TEMP 36.7; O2SAT 98
[2022-08-30 18:08] LABS: Glucose Point of Care 160 mg/dl (65-105)
[2022-08-30] MEDS: BISACODYL 10 MG SUPPOSITORY RECTAL (18:52)
[2022-08-30 20:52] VITALS: BP 97/55; PULSE 77; RESP 18; TEMP 37.1; O2SAT 97
[2022-08-30 23:30] LABS: Glucose Point of Care 204 mg/dl (65-105)
[2022-08-31 04:18] VITALS: BP 108/54; PULSE 68; RESP 18; TEMP 36.6; O2SAT 95
[2022-08-31 05:07] LABS: Glucose Point of Care 153 mg/dl (65-105)
[2022-08-31 05:43] LABS: Hematocrit 32.8 % (37.0-47.0); Hemoglobin 10.7 g/dL (12.0-15.0); Mean Corpuscular HGB Conc 32.6 g/dl (32-36); Mean Corpuscular Hemoglobin 33.1 pg (26-34); Mean Corpuscular Volume 101.5 fl (80-100); Mean Platelet Volume 10.2 fl (7.4-10.4); Platelet Count Result 138 k/mm3 (150-375); Red Blood Count 3.23 M/mm3 (4.2-5.4); Red Cell Distribution Width 13.2 % (11.5-14.5); White Blood Count 6.5 K/mm3 (4.5-10.0)
[2022-08-31 06:08] LABS: Anion Gap 7 mmol/L (8-16); Blood Urea Nitrogen 62 mg/dL (7-17); Calcium 8.9 mg/dL (8.4-10.2); Carbon Dioxide 31 mmol/L (22-30); Chloride 103 mmol/L (98-107); Estimated CRCL calculation 35 ml/min; Estimated Glomerular Filt Rate > 60; Glucose 145 mg/dL (65-110); Magnesium 2.3 mg/dL (1.6-2.3); Potassium 4.1 mmol/L (3.4-5.0); Sodium 141 mmol/L (137-145)
[2022-08-31] MEDS: FLUoxetine HCL 10 MG CAPSULE PO (09:08)
[2022-08-31] MEDS: CHOLECALCIFEROL 1,000 UNITS TABLET 1000 UNITS PO (09:08)
[2022-08-31] MEDS: LOSARTAN POTASSIUM 25 MG TABLET PO (09:08)
[2022-08-31] MEDS: LOVASTATIN 20 MG TABLET 40 MG PO (09:08)
[2022-08-31] MEDS: ASPIRIN 81 MG CHEWABLE TABLET PO (09:08)
[2022-08-31] MEDS: ASCORBIC ACID 500 MG TABLET PO (09:08)
[2022-08-31] MEDS: THERAPEUTIC MULTIVITAMINS/MINERALS TAB (*BKC) 1 TABLET PO (09:08)
[2022-08-31] MEDS: MAGNESIUM OXIDE 400 MG TABLET PO (09:08)
[2022-08-31 09:22] VITALS: RESP 18; O2SAT 95
[2022-08-31 12:29] LABS: Glucose Point of Care 171 mg/dl (65-105)
--- NOTE | 2022-08-31 12:52 | PM.DS ---
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 supranuclear ophthalmoplegia [Carlita] Status: Chronic (3) Parkinson disease: Code(s): G20 - Parkinson's disease Status: Chronic (4) Dysphagia: Qualifiers: Dysphagia type: unspecified Qualified Code(s): R13.10 - Dysphagia, unspecified Code(s): R13.10 - Dysphagia, unspecified Status: Acute (5) Protein calorie malnutrition: Qualifiers: Protein-calorie malnutrition severity: severe Qualified Code(s): E43 - Unspecified severe protein-calorie malnutrition Code(s): E46 - Unspecified protein-calorie malnutrition Status: Acute (6) Wheelchair bound: Code(s): Z99.3 - Dependence on wheelchair Status: Chronic (7) HTN (hypertension): Qualifiers: Hypertension type: primary hypertension Qualified Code(s): I10 - Essential (primary) hypertension Code(s): I10 - Essential (primary) hypertension Status: Chronic (8) High cholesterol: Code(s): E78.00 - Pure hypercholesterolemia, unspecified Status: Chronic (9) Diabetes: Qualifiers: Diabetes mellitus type: type 2 Diabetes mellitus complication status: without complication Diabetes mellitus prison insulin use: without medical terminologist use Qualified Code(s): E11.9 - Type 2 diabetes mellitus without complications Code(s): E11.9 - Type 2 diabetes mellitus without complications Status: Chronic (10) Constipation: Qualifiers: Constipation type: slow transit constipation Qualified Code(s): K59.01 - Slow transit constipation Code(s): K59.00 - Constipation, unspecified Status: Acute DS: Summary Hospital Course Reason for hospitalization: Generalized weakness Hospital Course: Ayah Schmidt is a 72-year-old female with Parkinson disease, hypertension, progressive supranuclear palsy, and non-insulin dependent diabetes. She presented to the ED for evaluation of generalized weakness. Her reported, the patient recently was treated for urinary tract infection and he noted she had an overall decline in functioning with generalized weakness, unable to walk, and unable to eat. She has had poor per orally intake in the for a few days pror to admission and had noticeable weight loss, as well. She had been laying in bed for prolonged periods of time. Preliminary workup in the ED, was unremarkable. A repeat urinalysis was without evidence of infection and chest x-ray was without acute disease. CT head was without acute findings, but did snow moderate cerebral and mild cerebellar volume loss. She was admitted to the medical floor for further evaluation of generalized weakness and failure to thrive. Failure to thrive & Protein calorie malnutrition Patient with overall decline and poor orally intake prior to admission. PT/OT consulted Speech therapy was consulted and the patient required honey thickened liquids and pureed diet. 08/28/2022?patient remained weak and tired, appeared chronically sick and undernourish. CK level was normal making statin related myopathy less likely. Dietitian was consulted for nutritional assessment and nutritional ice cream was added. TSH, cortisol, folate and B12 level were within normal limits. Hepatitis panel was negative and RUQ ultrasound was without abnormality despite mildly elevated LFTs. Her fluoxetine was lowered due to her relatively high dose and no prior history of mental illness prior to 2 years ago, discussed with family and initiate trial of medication reduction. Family reported the patient was eating more and tolerating dysphagia diet.?Family wanted to the take the patient sagar
[2022-09-01 15:54] LABS: Hepatitis C Viral RNA PCR <15 IU/mL
== END 2022-08-31 14:00 | disposition home health service (06) | DRG 57 ==
LOC: ANHED 18:29 → ANH2MED 22:27
PROVIDERS: Family Medicine; Internal Medicine; Admitting Provider Internal Medicine; Emergency Provider Emergency Medicine; PCP Emergency Medicine; Visit Provider Nurse Practitioner Family
DX: G23.1 Progressive supranuclear ophthalmoplegia [Steele-Richardson-Olszewski] (principal); Z68.1 Body mass index [BMI] 19.9 or less, adult; E46 Unspecified protein-calorie malnutrition; R62.7 Adult failure to thrive; G20 Parkinson's disease; I10 Essential (primary) hypertension; E78.5 Hyperlipidemia, unspecified; E11.9 Type 2 diabetes mellitus without complications; R13.10 Dysphagia, unspecified; F03.90 Unspecified dementia, unspecified severity, without behavioral disturbance, psychotic disturbance, mood disturbance, and anxiety; Z20.822 Contact with and (suspected) exposure to COVID-19; Z79.82 Long term (current) use of aspirin; Z99.3 Dependence on wheelchair
CPT/HCPCS: 36415; 51701; 70450; 71046; 74018; 76705; 80048; 80053; 81001; 82533; 82550; 82607; 82746; 82948; 83735; 84443; 85025; 85027; 86709; 87340; 87522; 92610; 93005; 96360; 96361; 96365; 96366; 96376; 97110; 97161; 97165; 97530; 97535; 99285; A9270; G0378; J7030; U0003; U0005

== ENCOUNTER → 2022-10-08 11:00 | Outpatient (CLI) | payer MEDICARE, SELFPAY ==
--- NOTE | ~2022-10-08 | XR_ITS ---
EXAMINATION: XR facial bones min 3V DATE: 10/08/2022 11:26 INDICATION: Face injury. Pain. TECHNIQUE: 7 views of the facial bones were obtained. COMPARISON: Head CT 08/26/2022 FINDINGS: Bone alignment is normal. No fracture. IMPRESSION: 1. No fracture. Reviewed, dictated and finalized at location A. [employer] IMPRESSION: 1. No fracture.
== END ==
PROVIDERS: PCP Family Medicine Adolescent Medicine; Visit Provider Family Medicine Adolescent Medicine
DX: H11.30 Conjunctival hemorrhage, unspecified eye (principal); S00.83XA Contusion of other part of head, initial encounter; X58.XXXA Exposure to other specified factors, initial encounter
CPT/HCPCS: 70150

== ENCOUNTER 2023-01-25 16:37 | Emergency (ER) | payer MEDICARE, SELFPAY ==
[2023-01-25 16:47] VITALS: BP 99/43; PULSE 95; RESP 16; TEMP 36.6; O2SAT 99
--- NOTE | 2023-01-25 17:15 | ED.GENADULT ---
HPI - General Adult General Chief complaint: Urogenital-Female Stated complaint: uti Time Seen by Provider: 01/25/23 17:15 Source: patient, family (), RN notes reviewed and old records reviewed Mode of arrival: ambulatory Limitations: no limitations History of Present Illness HPI narrative: 72-year-old female presents to the [facility] with her with concerns of and not urinating since yesterday. States that she only had 16 oz of her smoothie yesterday morning. Has not eaten anything else. Has increased swelling to bilateral lower extremities. Patient very limited due to Parkinson's disease in communication. Patient denies any pain. Onset (ago): day(s) (2) Related Data Home Medications Medication Instructions Recorded Confirmed ascorbate calcium (vitamin C) 500 500 mg PO DAILY 06/03/22 01/25/23 mg tablet aspirin 81 mg capsule 81 mg PO DAILY 06/03/22 01/25/23 biotin 10,000 mcg capsule 1,000 mcg PO DAILY 06/03/22 01/25/23 cholecalciferol (vitamin D3) 25 25 mcg PO DAILY 06/03/22 01/25/23 mcg (1,000 unit) capsule lovastatin 40 mg tablet 40 mg PO DAILY 06/03/22 01/25/23 magnesium 250 mg tablet 400 mg PO DAILY 06/03/22 01/25/23 [id number]-Rj-omxt-minerals 18 1 tablet PO DAILY 06/03/22 01/25/23 mg-0.4 mg tablet amantadine HCl 100 mg capsule 100 mg PO BID 09/06/22 01/25/23 quetiapine 25 mg tablet mg 01/25/23 Allergies Allergy/AdvReac Type Severity Reaction Status Date / Time chlorthalidone Allergy Mild Rash Verified 01/25/23 16:58 codeine Allergy Unknown Rash Verified 01/25/23 16:58 tramadol Allergy Unknown Rash Verified 01/25/23 16:58 Review of Systems Review of Systems: All systems reviewed & are unremarkable except as noted in HPI and below Constitutional: Constitutional: Reports as per HPI, Reports fatigue, Reports lethargy, Reports poor appetite and Reports weakness Eyes: Eyes: Reports no additional eye complaints ENT: Reports system reviewed and no additional complaints, except as documented Cardiovascular: Cardiovascular: Reports no additional cardiovascular complaints, Denies chest pain and Denies dyspnea Respiratory: Respiratory: Reports no additional respiratory complaints, Denies chest congestion, Denies cough and Denies dyspnea Gastrointestinal: Gastrointestinal: Reports no additional gastrointestinal complaints, Denies abdominal pain, Denies nausea and Denies vomiting Musculoskeletal: Musculoskeletal: Reports no additional musculoskeletal complaints Integumentary/Breasts: Skin/Breast: Reports system reviewed and no additional complaints, except as docu Neurologic: Reports system reviewed and no additional complaints, except as documented Psychiatric: Psychiatric: Reports no additional psychiatric complaints Allergic/Immunologic: Allergic/Immunologic: Reports no additional allergic/immunologic complaints PMFSH Past Medical History Medical History Allergic rhinitis Bilateral foot-drop Depression Diabetes Dysarthria High cholesterol HTN (hypertension) Lumbar spinal stenosis Parkinson disease Progressive supranuclear palsy Vitamin D deficiency Surgical History Surgical History History of appendectomy History of arthroscopic surgery of shoulder left shoulder S/P ORIF (open reduction internal fixation) fracture Right lower leg Family History Family History Father Asthma Heart disease Mother Ovarian cancer Other Acute myocardial infarction Diabetes mellitus Social History Social History Smoking status: Never smoker Alcohol intake: never Substance use: never Living arrangements: with family Additional living arrangements comments: Lives at home with and youngest son. Occupation/Education: unemployed Gender identity (if josh
== END 2023-01-25 17:32 | disposition short-term general hospital (02) ==
PROVIDERS: Emergency Provider Nurse Practitioner
DX: R62.7 Adult failure to thrive (principal); Z68.1 Body mass index [BMI] 19.9 or less, adult; G20 Parkinson's disease; E11.9 Type 2 diabetes mellitus without complications; E78.00 Pure hypercholesterolemia, unspecified; I10 Essential (primary) hypertension; M48.061 Spinal stenosis, lumbar region without neurogenic claudication; E55.9 Vitamin D deficiency, unspecified; Z79.82 Long term (current) use of aspirin
CPT/HCPCS: 99212; G0463

== ENCOUNTER 2023-01-25 18:01 | Observation (INO) | payer MEDICARE, SELFPAY ==
--- NOTE | ~2023-01-25 | XR_ITS ---
MODIFIED ESOPHAGRAM HISTORY: Parkinson's disease and difficulty swallowing. TECHNIQUE: Modified barium esophagram was performed on 01/26/2023. I administered fluoroscopy and perfo rmed the exam with speech pathologist. Patient was seated for lateral fluoroscopic imaging for inges tion of thin liquids, pudding, solids and quantified amounts, followed by thin liquids in uncontrolle d amounts. This was recorded on tape. A single fluoroscopic spot image was also recorded. The DAP for this procedure was 4 Gycm2. The amount of fluoroscopy time used during this procedure was 4.4 minute s. FINDINGS: Oral stage: Delayed transit time with oral and lingual residue.. Pharyngeal stage: There is delayed initiation of each swallow with reduced laryngeal elevation, abduc tion, tongue base retraction and pharyngeal squeeze. There is residue the vallecula and piriform sinu ses. Laryngeal penetration resulting from backflow into the vestibule with large amount of liquid but which clears without aspiration. Cervical/esophageal stage: Adequate function. IMPRESSION: Oral pharyngeal dysphagia with laryngeal penetration with larger volumes. Please correla te with speech pathologist findings and specific feeding recommendations. Reviewed, dictated and finalized at location A. IMPRESSION: Oral pharyngeal dysphagia with laryngeal penetration with larger vo lumes. Please correlate with speech pathologist findings and specific feeding recommendations.
--- NOTE | ~2023-01-25 | XR_ITS ---
EXAMINATION: XR chest 2V Exam Date/Time: 01/25/2023 20:20 CDT HISTORY: failure to thrive. POSSIBLE UTI. Comparison: 08/26/2022. RESULT: Lines, tubes, and devices: None. Lungs and pleura: Senescent changes, otherwise clear. Cardiomediastinal silhouette: Stable. Other: No acute osseous or upper abdominal finding. IMPRESSION: No acute cardiopulmonary process. Reviewed, dictated and finalized at location K.
[2023-01-25 18:04] VITALS: BP 96/51; PULSE 71; RESP 20; TEMP 37.1; O2SAT 93
--- NOTE | 2023-01-25 19:16 | ECG_ITS ---
Measurements Intervals [place] Rate: 77 P: 76 ID: [id number] QRS: -53 QRSD: 154 T: 92 QT: 410 QTc: 466 Interpretive Statements SINUS RHYTHM WITH FIRST DEGREE AV BLOCK MARKED LEFT AXIS DEVIATION [QRS AXIS < -30] LEFT BUNDLE BRANCH BLOCK [120+ ms QRS DURATION, 80+ ms Q/S IN V1/V2, 85+ ms R IN I/aVL/V5/V6] ABNORMAL ECG COMPARED TO ECG 08/26/2022 18:01:18 FIRST DEGREE AV BLOCK NOW PRESENT Electronically Signed On 01-26-2023 13:47:10 CDT by Keyru Castañeda M.D.
[2023-01-25 21:26] LABS: Basophils Absolute Auto 0.1 K/mm3 (0.0-0.1); Basophils Percent Auto 1.2 % (0.2-1.2); Eosinophils Absolute Auto 0.1 K/mm3 (0-0.3); Hematocrit 40.4 % (37.0-47.0); Hemoglobin 13.3 g/dL (12.0-15.0); Immature Granulocyte Absolute 0.01 K/mm3 (0.00-0.031); Immature Granulocyte Percent A 0.2 % (0-0.5); Lymphocytes Absolute Auto 1.98 K/mm3 (0.9-3.2); Lymphocytes Percent Auto 40.7 % (18.3-44.2); Mean Corpuscular HGB Conc 32.9 g/dl (32-36); Mean Corpuscular Hemoglobin 33.3 pg (26-34); Mean Platelet Volume 9.7 fl (7.4-10.4); Monocytes Absolute Auto 0.4 K/mm3 (0.1-0.6); Monocytes Percent Auto 7.6 % (2.6-8.5); Neutrophils Absolute Auto 2.4 K/mm3 (1.3-6.7); Neutrophils Percent Auto 49.3 % (45.5-73.1); Platelet Count Result 155 k/mm3 (150-375); White Blood Count 4.9 K/mm3 (4.5-10.0)
[2023-01-25 21:37] LABS: Alanine Aminotransferase 42 U/L (6-35); Albumin Level 4.6 g/dL (3.5-5.1); Alkaline Phosphatase 98 U/L (38-126); Anion Gap 5 mmol/L (8-16); Aspartate Amino Transferase 35 U/L (14-36); Bilirubin,Total 0.7 mg/dL (0.2-1.3); Blood Urea Nitrogen 36 mg/dL (7-17); Calcium 9.7 mg/dL (8.4-10.2); Carbon Dioxide 35 mmol/L (22-30); Chloride 98 mmol/L (98-107); Estimated Glomerular Filt Rate > 60; Glucose 105 mg/dL (65-110); Potassium 4.4 mmol/L (3.4-5.0); Sodium 138 mmol/L (137-145)
[2023-01-25 22:46] LABS: Appearance Urine Cloudy (Clear); Bacteria Urine 4+ /hpf; Bilirubin Urine Negative (Negative); Blood Urine Negative (Negative); Color Urine Yellow (Yellow); Glucose Urine UA Negative (Negative); Ketones Urine Trace mg/dL (Negative); Leukocyte Esterase Ur 1+ LEU/UL (Negative); Need Manual Microscopic Reviewed; Nitrate Urine Positive (Negative); Non Pathogenic Casts 0-2; Protein Urine Negative (Negative); RBC Urine >100 /hpf (0-2); Specific Grav Ur 1.015 (1.001-1.035); Squamous Epithelial Cell Urine None seen /hpf (Few); pH Urine 6.5 (5.0-9.0)
[2023-01-25 22:49] LABS: Add Urine Microscopic? YES
[2023-01-26] VITALS (7 sets, daily range): BP systolic 112–152; BP diastolic 53–90; PULSE 60–84; RESP 14–18; TEMP 36.6–37; O2SAT 87–100; BMI 16.7
--- NOTE | 2023-01-26 00:05 | ED.GENADULT ---
HPI - General Adult General Chief complaint: Weakness Stated complaint: weakness and decreased appetite - sent from Time Seen by Provider: 01/25/23 22:57 History of Present Illness HPI narrative: This is a 72-year-old female with Parkinson's presenting to ED for weakness and decreased appetite. Over the last several days the patient has stopped eating and drinking. She says is because she is having difficulty swallowing. Her noticed that she felt slightly warm to the touch and that when she awoke this morning her diaper was dry which is abnormal for her. There have been no aspiration events.He took her to an urgent care with a were concerned for dehydration. He then brought her to the hospital. The patient has seen Dr. De Santiago in the past for the difficulty swallowing. At that time there was some discussion about G-tube placement but they had not gone ahead with the procedure at that point. Related Data Home Medications Medication Instructions Recorded Confirmed ascorbate calcium (vitamin C) 500 500 mg PO DAILY 06/03/22 01/25/23 mg tablet aspirin 81 mg capsule 81 mg PO DAILY 06/03/22 01/25/23 biotin 10,000 mcg capsule 1,000 mcg PO DAILY 06/03/22 01/25/23 cholecalciferol (vitamin D3) 25 25 mcg PO DAILY 06/03/22 01/25/23 mcg (1,000 unit) capsule lovastatin 40 mg tablet 40 mg PO DAILY 06/03/22 01/25/23 magnesium 250 mg tablet 400 mg PO DAILY 06/03/22 01/25/23 ssxepsbynywg-Tp-xnmc-minerals 18 1 tablet PO DAILY 06/03/22 01/25/23 mg-0.4 mg tablet amantadine HCl 100 mg capsule 100 mg PO BID 09/06/22 01/25/23 quetiapine 25 mg tablet mg 01/25/23 Allergies Allergy/AdvReac Type Severity Reaction Status Date / Time chlorthalidone Allergy Mild Rash Verified 01/25/23 18:02 codeine Allergy Unknown Rash Verified 01/25/23 18:02 tramadol Allergy Unknown Rash Verified 01/25/23 18:02 [facility] Past Medical History Medical History Allergic rhinitis Bilateral foot-drop Depression Diabetes Dysarthria High cholesterol HTN (hypertension) Lumbar spinal stenosis Parkinson disease Progressive supranuclear palsy Vitamin D deficiency Surgical History Surgical History History of appendectomy History of arthroscopic surgery of shoulder left shoulder S/P ORIF (open reduction internal fixation) fracture Right lower leg Family History Family History Father Asthma Heart disease Mother Ovarian cancer Other Acute myocardial infarction Diabetes mellitus Social History Social History Smoking status: Never smoker Alcohol intake: never Substance use: never Living arrangements: with family Additional living arrangements comments: Lives at home with and youngest son. Occupation/Education: unemployed Gender identity (if verbalized by the patient): Female Spiritual care concerns: No Exam Narrative: APPEARANCE: No apparent distress. A&O x4, patient is emaciated Head: atraumatic. EYES: EOMI, NOSE: Atraumatic NECK: Trachea midline RESPIRATORY: No increased rate of breathing CARDIOVASCULAR: RRR, chronic edema lower extremities ABDOMINAL: Non-distended MUSCULOSKELETAl: No obvious deformities, contracted NEURO: Alert. Moving 4/4 extremities SKIN:: Warm, dry. Normal color PSYCHIATRIC: Normal affect Course Vital Signs Vital signs: Vital Signs Temperature 98.7 F 01/25/23 18:04 Pulse Rate 71 01/25/23 18:04 Respiratory Rate 20 01/25/23 18:04 Blood Pressure 96/51 L 01/25/23 18:04 Pulse Oximetry 93 01/25/23 18:04 Oxygen Delivery Room Air 01/25/23 18:04 Temperature 98.7 F 01/25/23 18:04 Pulse Rate 71 01/25/23 18:04 Respiratory Rate 20 01/25/23 18:04 Blood Pressure 96/51 L 01/25/23 18:04 Pulse Oximetry 93 01/25/23 18:04 Oxygen [employer]
--- NOTE | 2023-01-26 01:01 | PM.IMHP ---
H&P: HPI History of Present Illness Date/Time: 01/26/23 01:01 Chief Complaint: Generalized weakness Narrative: This is a 72-year-old female with past medical history significant for Parkinson's disease, patient is bed ridden and wheelchair-bound, weight loss, poor per oral intake, patient was brought to the emergency room for evaluation due to spouse is concerned about worsening of her per orally intake usually her meals are pureed and liquefied with chicken broth or beef broth however patient is able to eat pureed as well noted that patient was leaning to the side and very weak unable to feed herself in the last couple of days or so and also noted to be warm to the touch. Most of the history has been obtained from who is at bedside. Preliminary workup was significant for urinalysis with numerous RBCs and WBCs present. Patient is known to have urinary tract infections in the past. Patient has been admitted for further evaluation management and treatment. Review of Systems Review of Systems: ROS unobtainable: Yes unobtainable due to medical condition (Debilitation, Parkinson's.) [facility] Past Medical History Medical History Allergic rhinitis Bilateral foot-drop Depression Diabetes Dysarthria High cholesterol HTN (hypertension) Lumbar spinal stenosis Parkinson disease Progressive supranuclear palsy Vitamin D deficiency Surgical History Surgical History History of appendectomy History of arthroscopic surgery of shoulder left shoulder S/P ORIF (open reduction internal fixation) fracture Right lower leg Family History Family History Father Asthma Heart disease Mother Ovarian cancer Other Acute myocardial infarction Diabetes mellitus Social History Social History Smoking status: Never smoker Alcohol intake: never Substance use: never Living arrangements: with family Additional living arrangements comments: Lives at home with and youngest son. Occupation/Education: unemployed Gender identity (if verbalized by the patient): Female Spiritual care concerns: No Meds Home Medications and Allergies Home Medications Medication Instructions Recorded Confirmed Type ascorbate calcium (vitamin C) 500 500 mg PO DAILY 06/03/22 01/25/23 History mg tablet aspirin 81 mg capsule 81 mg PO DAILY 06/03/22 01/25/23 History biotin 10,000 mcg capsule 1,000 mcg PO DAILY 06/03/22 01/25/23 History cholecalciferol (vitamin D3) 25 25 mcg PO DAILY 06/03/22 01/25/23 History mcg (1,000 unit) capsule lovastatin 40 mg tablet 40 mg PO DAILY 06/03/22 01/25/23 History magnesium 250 mg tablet 400 mg PO DAILY 06/03/22 01/25/23 History obcpescwmrxa-Qv-jwvk-minerals 18 1 tablet PO DAILY 06/03/22 01/25/23 History mg-0.4 mg tablet amantadine HCl 100 mg capsule 100 mg PO BID 09/06/22 01/25/23 History fluoxetine 10 mg capsule (Prozac) 10 mg PO QAM #90 caps 09/20/22 01/25/23 Rx quetiapine 25 mg tablet mg 01/25/23 History Allergies Allergy/AdvReac Type Severity Reaction Status Date / Time chlorthalidone Allergy Mild Rash Verified 01/25/23 18:02 codeine Allergy Unknown Rash Verified 01/25/23 18:02 tramadol Allergy Unknown Rash Verified 01/25/23 18:02 Vital Signs Vital Signs - 24 hr 01/25/23 18:04 Temperature 98.7 F Pulse Rate 71 Respiratory Rate 20 Blood Pressure 96/51 L Pulse Oximetry 93 Oxygen Delivery Room Air Exam Narrative: Patient is laying in a stretcher Const: General: comfortable, no acute distress, well developed, alert, awake, ill appearing, cachectic and other (Generalized muscle atrophy) Nutritional Appearance: average body habitus Orientation/consciousness: oriented to person and oriented to place HENMT: Head: normal to inspection, normocephalic, atrau
[2023-01-26 01:22] LABS: Influenza A QL RT-PCR Negative (Negative); Influenza B QL RT-PCR Negative (Negative); RSV RNA, RT-PCR Negative (Negative); SARS-CoV-2 RNA PCR Negative
[2023-01-26] MEDS: LACTATED RINGERS 1,000 ML 75 ML IV CONT ×2 (01:42→17:14)
--- NOTE | 2023-01-26 02:51 | ADMGEN ---
This patient, Ayah Schmidt, was admitted to Medical Room 245-. Patient/family oriented to hospital policies and general routines including ID bracelet, bed and alarms, visiting hours, pain management, procedures, bathroom and other care routines, personal items, smoking policy, room service/diet, and visiting hours. Information on how to activate the Rapid Response Team has been discussed. Patient/Family are encouraged to report perceived risks to care and to ask questions if they do not understand what they are told or what they should do.
--- NOTE | 2023-01-26 03:18 | PC.NURSE ---
Spoke with Rell r/gisela home medication list. states he will bring copy in with him in the morning as there are too many to name off.
--- NOTE | 2023-01-26 09:34 | PCSTNOTE ---
Please refer to the Modified Barium Swallow Evaluation in the EMR.
--- NOTE | 2023-01-26 13:37 | PC.NURSE ---
On 01/26/23, the student, [Alvina Alicea], provided care and completed [facility] documentation on this patient. I have reviewed the student's documentation and agree with the findings.
--- NOTE | 2023-01-26 15:48 | WPDGICN ---
Assessment and Plan Assessment and plan (1) Protein calorie malnutrition: Qualifiers: Protein-calorie malnutrition severity: severe Qualified Code(s): E43 - Unspecified severe protein-calorie malnutrition Code(s): E46 - Unspecified protein-calorie malnutrition Status: Acute Assessment and Plan: she is here after last few days with more weakness than usual and lethargic but found to have UTI and started on treatment She was seeing by Dr De Santiago few months ago, she has been eating special pureed diet and plan was to await on tube feeding placement patient was just started on antibiotics, she would like to wait on G-tube placement. I expect that will respon to antibiotics and probably will be back to her baseline will keep monitoring during her hospital stay (2) Adult failure to thrive: Code(s): R62.7 - Adult failure to thrive Status: Acute (3) Dysphagia: Code(s): R13.10 - Dysphagia, unspecified Status: Acute Assessment and Plan: from parkinson on special diet (4) Acute UTI: Code(s): N39.0 - Urinary tract infection, site not specified Status: Acute Assessment and Plan: on treatment (5) Parkinson's disease: Code(s): G20 - Parkinson's disease Status: Acute (6) Progressive supranuclear palsy: Code(s): G23.1 - Progressive supranuclear ophthalmoplegia [Carlita] Status: Chronic GI Consult Note Consult date/time: 01/26/23 15:48 HPI: Ayah Schmidt is a 72 year old female ?She has severe Parkinson's syndrome she has apparently some dementia.? She has been seen by [facility] neurology for supranuclear ophthalmoplegia.? They also treat her Parkinson's disease.? She had lost about 100 lb over the last year and she has seen Dr De Santiago in the office on 09/2022, she actually was eating pureed diet with assistance and maintaining her weight, decision was to hold off on G-tube placement. This time she is here patient after spouse got concerned about worsening of her oral intake and generalized weakness but she was found to have UTI again, started on antibiotics. Review of Systems Review of Systems: All systems reviewed & are unremarkable except as noted in HPI and below Constitutional: Constitutional: Reports as per HPI, Reports fatigue, Reports lethargy, Reports poor appetite and Reports weakness Eyes: Eyes: Reports no additional eye complaints ENT: Reports system reviewed and no additional complaints, except as documented Cardiovascular: Cardiovascular: Reports no additional cardiovascular complaints, Denies chest pain and Denies dyspnea Respiratory: Respiratory: Reports no additional respiratory complaints, Denies chest congestion, Denies cough and Denies dyspnea Gastrointestinal: Gastrointestinal: Reports no additional gastrointestinal complaints, Denies abdominal pain, Denies nausea and Denies vomiting Musculoskeletal: Musculoskeletal: Reports no additional musculoskeletal complaints Integumentary/Breasts: Skin/Breast: Reports system reviewed and no additional complaints, except as docu Neurologic: Comments: parkinson Psychiatric: Psychiatric: Reports no additional psychiatric complaints Allergic/Immunologic: Allergic/Immunologic: Reports no additional allergic/immunologic complaints PMFSH Past Medical History Medical History Allergic rhinitis Bilateral foot-drop Depression Diabetes Dysarthria High cholesterol HTN (hypertension) Lumbar spinal stenosis Parkinson disease Progressive supranuclear palsy Vitamin D deficiency Surgical History Surgical History History of appendectomy History of arthroscopic surgery of shoulder left shoulder S/P ORIF (open reduction internal fixation) fracture Right lower leg Family History Family History (Reviewed 01/26/23 @ 00:09 by Malgorzata
--- NOTE | 2023-01-26 15:49 | PM.IMPN ---
Progress Note: A&P Assessment and Plan (1) Acute UTI: Code(s): N39.0 - Urinary tract infection, site not specified Status: Acute Assessment and Plan: Patient presented with abnormal urinalysis on presentation with a decreased urinary output and poor p.o. intake. Continue IV ceftriaxone while awaiting urine cultures. Supportive care (2) Dysphagia: Code(s): R13.10 - Dysphagia, unspecified Status: Acute Assessment and Plan: Patient with history of dysphagia maintained on pureed diet at home. Typically does well with this but unable to tolerate oral intake at home over the past 1-2 days. Participated in speech therapy today and demonstrated penetration with thin liquids and slow oral transit. Recommendations for. Diet with mildly thickened liquids. Continue speech therapy. GI has been consulted for consideration of PEG tube. Hopefully as patient has urinary tract infection improves, she will begin tolerating more oral intake, however patient and POA are comfortable with PEG tube placement if this becomes medically necessary (3) Parkinson's disease: Code(s): G20 - Parkinson's disease Status: Acute Assessment and Plan: Chronic, unchanged. (4) Progressive supranuclear palsy: Code(s): G23.1 - Progressive supranuclear ophthalmoplegia [[id number]-Mdvgvqodb] Status: Chronic Assessment and Plan: Chronic and unchanged, established with specialist at [facility]. (5) Protein calorie malnutrition: Qualifiers: Protein-calorie malnutrition severity: severe Qualified Code(s): E43 - Unspecified severe protein-calorie malnutrition Code(s): E46 - Unspecified protein-calorie malnutrition Status: Acute Assessment and Plan: Severe malnutrition secondary to poor oral intake. Continue with dietary modifications and ensure enive t.i.d. (6) Wheelchair bound: Code(s): Z99.3 - Dependence on wheelchair Status: Chronic Assessment and Plan: Cared for at home by . At functional baseline at this time Time Spent With Patient Time: 50 minutes Time with patient: Greater than 35 minutes Subjective Date/time seen: 01/26/23 15:49 Interval history: Date of service: 01/26/2023 Ayah Schmidt is a 72-year-old female with a history of hypertension, Parkinson's disease, progressive supranuclear palsy, dementia, type 2 diabetes mellitus, and dysphagia maintained on pureed diet who is seen in follow-up for UTI. The patient's states that about 1 month ago the patient was started on new medication due to hallucinations it was working well and the patient was no longer having hallucinations until yesterday. At that time he was concerned something was wrong because she does also get hallucinations when she has urinary tract infections. He noticed that she was having more trouble eating and was not able to tolerate much oral intake. He also stated that she was not making as much urine and he was concerned she was dehydrated. He states that at baseline, the patient has no function in her lower extremities. She is bed-bound and he will get her out of her bed and into a wheelchair will she will sit and watch TV. She is able to feed herself but he prepares her meals. She is incontinent. The patient is A&O x3 but not able to provide much useful history. She states that she is feeling well. She denies any pain. Review of Systems Review of Systems: ROS unobtainable: Yes unobtainable due to mental status Exam Narrative: General: Thin, chronically ill-appearing 72-year-old female, sitting up in bed leaning to the right side, comfortable, NARD Neuro: awake, alert and oriented x3, speech clear, no focal neuro deficits noted, exhibits confusion HEENMT: normocephalic, atraumatic, EOMI, sclerae anicteric Respiratory: clear to auscultation bilaterally, nonlabored breathing Cardio: regula
[2023-01-26] MEDS: AMANTADINE HCL 100 MG CAPSULE PO (17:29)
[2023-01-27 05:29] LABS: Hematocrit 37.3 % (37.0-47.0); Hemoglobin 12.2 g/dL (12.0-15.0); Mean Corpuscular HGB Conc 32.7 g/dl (32-36); Mean Corpuscular Hemoglobin 32.8 pg (26-34); Mean Corpuscular Volume 100.3 fl (80-100); Mean Platelet Volume 9.7 fl (7.4-10.4); Platelet Count Result 143 k/mm3 (150-375); Red Blood Count 3.72 M/mm3 (4.2-5.4); Red Cell Distribution Width 12.8 % (11.5-14.5); White Blood Count 5.6 K/mm3 (4.5-10.0)
[2023-01-27 05:39] LABS: Anion Gap 6 mmol/L (8-16); Blood Urea Nitrogen 28 mg/dL (7-17); Calcium 9.3 mg/dL (8.4-10.2); Carbon Dioxide 32 mmol/L (22-30); Chloride 103 mmol/L (98-107); Estimated CRCL calculation 41 ml/min; Estimated Glomerular Filt Rate > 60; Glucose 130 mg/dL (65-110); Potassium 4.4 mmol/L (3.4-5.0); Sodium 141 mmol/L (137-145)
--- NOTE | 2023-01-27 06:37 | PC.NURSE ---
RECEIVED CALL FROM LAB AND TOOK CRITICAL RESULTS FOR NURSE ADA WHILE SHE WAS WITH A PATIENT. + BLOOD CULTURES.
[2023-01-27 06:57] VITALS: BP 131/71; PULSE 74; RESP 14; TEMP 36.6; O2SAT 98
[2023-01-27] MEDS: AMANTADINE HCL 100 MG CAPSULE PO ×2 (09:06→16:54)
[2023-01-27] MEDS: ASCORBIC ACID 500 MG TABLET 1000 MG PO (09:06)
[2023-01-27] MEDS: ASPIRIN 81 MG CHEWABLE TABLET PO (09:06)
[2023-01-27] MEDS: THERAPEUTIC MULTIVITAMINS/MINERALS TAB (*BKC) 1 TABLET PO (09:07)
[2023-01-27] MEDS: FLUoxetine HCL 10 MG CAPSULE PO (09:07)
[2023-01-27] MEDS: LOVASTATIN 20 MG TABLET 40 MG PO (09:07)
[2023-01-27] MEDS: CHOLECALCIFEROL 1,000 UNITS TABLET 1000 UNITS PO (09:07)
--- NOTE | 2023-01-27 11:29 | PCCCNOTE ---
[facility] Confirms full name and . Asking if patient is still OBS or IP. When patient becomes IP they only hold for 24 hours. Confirmed at this time that patient is still OBS but rounds have not occurred today. [facility] requested H&P to be fax'd. Fax'd as requested.
--- NOTE | 2023-01-27 12:51 | WPDGIPROGNO ---
Progress Note: A&P Assessment and Plan (1) Parkinson's disease: Code(s): G20 - Parkinson's disease Status: Acute Assessment and Plan: Patient with chronic Parkinson's disease which is wearing on her. Continue treatment as previously outlined. (2) Dysphagia: Code(s): R13.10 - Dysphagia, unspecified Status: Acute Assessment and Plan: Dysphagia improving. Likely improving with strength now that urinary tract infection is being treated. Plan to allow oral intake. She apparently had difficulties when she was weak after urinary tract infection caused admission. Disposition per primary care service. Recommend eating with head of bed elevated. Soft diet advised. PEG tube likely can be avoided. (3) Acute UTI: Code(s): N39.0 - Urinary tract infection, site not specified Status: Acute Assessment and Plan: Currently being treated by antibiotics. Under the direction of primary care service. (4) Protein calorie malnutrition: Qualifiers: Protein-calorie malnutrition severity: severe Qualified Code(s): E43 - Unspecified severe protein-calorie malnutrition Code(s): E46 - Unspecified protein-calorie malnutrition Status: Acute Subjective Date/time seen: 01/27/23 12:51 Interval history: Patient lying in bed. Appears more alert today. Seen today in the absence of Dr. Griffiths. Patient now afebrile. Tolerating soft diet since yesterday. Able to eat without coughing or choking. Son who is assisting her today states she is able to feed herself. Review of Systems Review of Systems: ROS unobtainable: Yes unobtainable due to mental status Exam Narrative: Physical exam reveals patient be alert. Sitting in bed. HEENT exam reveals no icterus. Lungs are clear. Heart without murmur. Abdomen benign. Objective Data Vital Signs Vital Signs: Vital Signs - 24 hr 01/26/23 14:00 01/26/23 20:59 01/26/23 20:00 Temperature 97.8 F 97.9 F Pulse Rate 64 84 84 Respiratory Rate 14 16 16 Blood Pressure 112/53 L 121/66 Pulse Oximetry 87 L 98 98 Oxygen Delivery Room Air 01/27/23 06:57 01/27/23 09:00 Temperature 97.8 F Pulse Rate 74 Respiratory Rate 14 Blood Pressure 131/71 Pulse Oximetry 98 Oxygen Delivery Room Air Intake/Output Intake/Output: Intake & Output 04/0301/25/23 01/26/23 01/27/23 23:59 23:59 23:59 23:59 Intake Total 1530 290 Balance 1530 290 Meds/Results Medications: Active Medications Generic Name Dose Route Start Last Admin Trade Name Campbell PRN Reason Stop Dose Admin Amantadine HCl 100 mg 01/26/23 17:00 01/27/23 09:06 Amantadine Hcl 100 Mg Capsule PO 100 mg BID ROBYN Administration Ascorbic Acid 1,000 mg 01/27/23 09:00 01/27/23 09:06 Ascorbic Acid 500 Mg Tablet PO 1,000 mg DAILY ROBYN Administration Aspirin 81 mg 01/27/23 08:00 01/27/23 09:06 Aspirin 81 Mg Chewable Tablet PO 81 mg DAILY@0800 ROBYN Administration Fluoxetine HCl 10 mg 01/27/23 09:00 01/27/23 09:07 Fluoxetine Hcl 10 Mg Capsule PO 10 mg QAM ROBYN Administration Ceftriaxone Sodium 1 gm in 50 mls @ 100 mls/hr 01/26/23 22:00 01/26/23 21:52 Rocephin 1 Gm/Ns 50 Ml IVPB 0 mls/hr Q24H ROBYN Infusion Lovastatin 40 mg 01/27/23 09:00 01/27/23 09:07 Lovastatin 20 Mg Tablet PO 40 mg DAILY ROBYN Administration Miscellaneous Information 1 each 01/26/23 00:01 Magnesium 300mg Is Non Formualry. We Stock Mag Oxide 200mg Or 400mg. Please Get New Orde XX 02/25/23 00:00 [facility] Multivitamins/Calcium 1 tablet 01/27/23 09:00 01/27/23 09:07 Therapeutic Multivitamins/Minerals Tab (*Bkc) PO 1 tablet DAILY [facility] Administration Non-Formulary Medication 300 mg 01/27/23 09:00 Magnesium PO 02/26/23 08:59 DAILY [facility] Quetiapine Fumarate 25 mg 01/27/23 09:00 Quetiapine Fumarate 25 Mg Tablet PO DAILY [facility] Vitamin D 1,000 units 01/27/23 09:00
[2023-01-27 14:00] VITALS: BP 115/72; PULSE 79; RESP 18; TEMP 36.9; O2SAT 96
--- NOTE | 2023-01-27 15:42 | PM.IMPN ---
Progress Note: A&P Assessment and Plan (1) Acute UTI: Code(s): N39.0 - Urinary tract infection, site not specified Status: Acute Assessment and Plan: Patient presented with abnormal urinalysis on presentation with a decreased urinary output and poor p.o. intake. Urine culture with growth of >100k E coli. patient afebrile, leukocytosis. Patient received ceftriaxone which is appropriate based on susceptibilities. Will transition to amoxicillin 500 mg q.8 hours, discussed case with ID PharmD. (2) Dysphagia: Code(s): R13.10 - Dysphagia, unspecified Status: Acute Assessment and Plan: Patient with history of dysphagia maintained on pureed diet at home. Typically does well with this but unable to tolerate oral intake at home over the past 1-2 days, likely due to acute infection. Participated in speech therapy this admission and MBS demonstrated penetration with thin liquids and slow oral transit. Recommendations for pureed diet with mildly thickened liquids. Continue speech therapy. GI has been consulted for consideration of PEG tube. With improvement of acute UTI, oral intake is returning to baseline and PEG tube not felt to be required at this time. Aspiration precautions implemented. (3) Parkinson's disease: Code(s): G20 - Parkinson's disease Status: Acute Assessment and Plan: Chronic, unchanged. (4) Progressive supranuclear palsy: Code(s): G23.1 - Progressive supranuclear ophthalmoplegia [[id number]-[id number]] Status: Chronic Assessment and Plan: Chronic and unchanged, established with specialist at [facility]. (5) Protein calorie malnutrition: Qualifiers: Protein-calorie malnutrition severity: severe Qualified Code(s): E43 - Unspecified severe protein-calorie malnutrition Code(s): E46 - Unspecified protein-calorie malnutrition Status: Acute Assessment and Plan: Severe malnutrition secondary to poor oral intake. Continue with dietary modifications and ensure enlive t.i.d. (6) Wheelchair bound: Code(s): Z99.3 - Dependence on wheelchair Status: Chronic Assessment and Plan: Cared for at home by . At functional baseline at this time Subjective Date/time seen: 01/27/23 15:42 Interval history: Date of service: 01/26/2023 Ayah Schmidt is a 72-year-old female with a history of hypertension, Parkinson's disease, progressive supranuclear palsy, dementia, type 2 diabetes mellitus, and dysphagia maintained on pureed diet who is seen in follow-up for UTI. patient is sitting up in bed stay feeding herself lunch. She has been unable to tolerate her diet. Her is at the bedside and states that she fed herself and ate all of her breakfast is doing really well with lunch. The patient states that she is not feeling well but not able to elaborate on symptoms. She does endorse headache. She denies abdominal pain, nausea, vomiting, fever, or chills. Denies urinary symptoms. Not able to provide any additional history. Her feels that overall she is improved and almost back to her baseline. Review of Systems Review of Systems: ROS unobtainable: Yes unobtainable due to mental status Exam Narrative: General: Thin, chronically ill-appearing 72-year-old female, sitting up in bed leaning to the right side, comfortable, NARD Neuro: awake, alert and oriented x3, speech clear, no focal neuro deficits noted, exhibits confusion HEENMT: normocephalic, atraumatic, EOMI, sclerae anicteric Respiratory: clear to auscultation bilaterally, nonlabored breathing Cardio: regular rate, regular rhythm with S1-S2 Abdomen: nondistended, normoactive bowel sounds, soft, nontender to palpation Extremities: Trace edema of bilateral lower extremities, no erythema, or tenderness to palpation Skin: no rashes or lesions, warm and dry Psych: Flat affect, judgment insi
--- NOTE | 2023-01-27 19:37 | PC.NURSE ---
On 01/27/23, the license pending RN, Betsey Ayala, provided care and completed [facility] documentation on this patient. I have reviewed the license pending RN's documentation and agree with the findings.
[2023-01-27 20:00] VITALS: PULSE 75; RESP 16; O2SAT 95
[2023-01-27] MEDS: QUEtiapine FUMARATE 25 MG TABLET PO (21:04)
[2023-01-27 21:46] VITALS: BP 131/65; PULSE 75; RESP 16; TEMP 37.3; O2SAT 95
[2023-01-28 06:03] LABS: Hematocrit 37.1 % (37.0-47.0); Hemoglobin 11.9 g/dL (12.0-15.0); Immature Platelet Fraction Pct 3.7 % (0.9-11.2); Mean Corpuscular HGB Conc 32.1 g/dl (32-36); Mean Corpuscular Hemoglobin 31.9 pg (26-34); Mean Corpuscular Volume 99.5 fl (80-100); Mean Platelet Volume 10.1 fl (7.4-10.4); Platelet Count Result 128 k/mm3 (150-375); Red Blood Count 3.73 M/mm3 (4.2-5.4); Red Cell Distribution Width 12.8 % (11.5-14.5); White Blood Count 5.8 K/mm3 (4.5-10.0)
[2023-01-28 06:09] LABS: Anion Gap 4 mmol/L (8-16); Blood Urea Nitrogen 36 mg/dL (7-17); Calcium 9.2 mg/dL (8.4-10.2); Carbon Dioxide 36 mmol/L (22-30); Chloride 103 mmol/L (98-107); Estimated CRCL calculation 41 ml/min; Estimated Glomerular Filt Rate > 60; Glucose 113 mg/dL (65-110); Potassium 4.5 mmol/L (3.4-5.0); Sodium 143 mmol/L (137-145)
[2023-01-28 06:56] VITALS: BP 121/70; PULSE 70; RESP 16; TEMP 36.7; O2SAT 98
[2023-01-28] MEDS: AMOXICILLIN 500 MG CAPSULE PO ×2 (09:05→13:36)
[2023-01-28] MEDS: ASCORBIC ACID 500 MG TABLET 1000 MG PO (09:05)
[2023-01-28] MEDS: ASPIRIN 81 MG CHEWABLE TABLET PO (09:05)
[2023-01-28] MEDS: AMANTADINE HCL 100 MG CAPSULE PO (09:05)
[2023-01-28] MEDS: CHOLECALCIFEROL 1,000 UNITS TABLET 1000 UNITS PO (09:06)
[2023-01-28] MEDS: LOVASTATIN 20 MG TABLET 40 MG PO (09:06)
[2023-01-28] MEDS: FLUoxetine HCL 10 MG CAPSULE PO (09:06)
[2023-01-28] MEDS: THERAPEUTIC MULTIVITAMINS/MINERALS TAB (*BKC) 1 TABLET PO (09:07)
[2023-01-28] MEDS: MAGNESIUM OXIDE 200 MG TABLET PO (09:07)
[2023-01-28 12:19] LABS: Glucose Point of Care 139 mg/dl (65-105)
[2023-01-28 14:00] VITALS: BP 112/67; PULSE 83; RESP 16; TEMP 36.8; O2SAT 96
--- NOTE | 2023-01-29 09:48 | PC.NURSE ---
Pt called this am. 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 After confirming the preferred pharmacy with him, I called Deborah at [facility] & called in the script for amoxicillin 500 mg PO TID for 15 capsules, quantity 15 under Kylie Stimac, as provider. I called him back and updated him on the availability.
--- NOTE | 2023-02-05 15:04 | PM.DS ---
DS: Admitting Diagnosis Discharge Date 01/28/23 Admitting Diagnosis Generalized weakness DS: Discharge Diagnosis Discharge Diagnosis (1) Acute UTI: Code(s): N39.0 - Urinary tract infection, site not specified Status: Acute Assessment and Plan: Patient presented with abnormal urinalysis on presentation with a decreased urinary output and poor p.o. intake. Continue IV ceftriaxone while awaiting urine cultures. Supportive care (2) Dysphagia: Code(s): R13.10 - Dysphagia, unspecified Status: Acute Assessment and Plan: Patient with history of dysphagia maintained on pureed diet at home. Typically does well with this but unable to tolerate oral intake at home over the past 1-2 days. Participated in speech therapy today and demonstrated penetration with thin liquids and slow oral transit. Recommendations for. Diet with mildly thickened liquids. Continue speech therapy. GI has been consulted for consideration of PEG tube. Hopefully as patient has urinary tract infection improves, she will begin tolerating more oral intake, however patient and POA are comfortable with PEG tube placement if this becomes medically necessary (3) Parkinson's disease: Code(s): G20 - Parkinson's disease Status: Acute Assessment and Plan: Chronic, unchanged. (4) Progressive supranuclear palsy: Code(s): G23.1 - Progressive supranuclear ophthalmoplegia [Iirxmy-Ryvaoyzdkd-Scghhykgn] Status: Chronic Assessment and Plan: Chronic and unchanged, established with specialist at [facility]. (5) Protein calorie malnutrition: Qualifiers: Protein-calorie malnutrition severity: severe Qualified Code(s): E43 - Unspecified severe protein-calorie malnutrition Code(s): E46 - Unspecified protein-calorie malnutrition Status: Acute Assessment and Plan: Severe malnutrition secondary to poor oral intake. Continue with dietary modifications and ensure enive t.i.d. (6) Wheelchair bound: Code(s): Z99.3 - Dependence on wheelchair Status: Chronic Assessment and Plan: Cared for at home by . At functional baseline at this time DS: Summary Hospital Course Reason for hospitalization: Chief Complaint: Generalized weakness Narrative: This is a 72-year-old female with past medical history significant for Parkinson's disease, patient is bed ridden and wheelchair-bound, weight loss, poor per oral intake, patient was brought to the emergency room for evaluation due to spouse is concerned about worsening of her per orally intake usually her meals are pureed and liquefied with chicken broth or beef broth however patient is able to eat pureed as well noted that patient was leaning to the side and very weak unable to feed herself in the last couple of days or so and also noted to be warm to the touch.? Most of the history has been obtained from who is at bedside.? Preliminary workup was significant for urinalysis with numerous RBCs and WBCs present.? Patient is known to have urinary tract infections in the past.? Patient has been admitted for further evaluation management and treatment. Hospital Course: Patient presented with generalized weakness and was found to UTI urine culture grew E coli sensitive to ceftriaxone, patient clinically symptoms are improved patient is clinically stable will discharge the patient on amoxicillin. Time Spent with Patient Time attestation: Total time spent providing and/or coordinating discharge services: Exam Narrative: Patient is comfortable, NAD HEENT: eyes are clear and none icteric LUNGS: Normal respiratory effort ABD: Not distended Lower extremities: no edema SKIN: nonjaundiced Neuro: grossly intact. Discharge Plan Discharge Attending physician on discharge: Chelo Nichols Consulting providers: Keyur Castañeda ; Gorge Haddad ; Sharad Tyler ; Rodrick Rowan
== END 2023-01-28 16:10 | disposition home health service (06) ==
LOC: ANHED 01-26 00:33 → ANH2MED 01-26 02:37
PROVIDERS: Admitting Provider Internal Medicine; Emergency Provider Emergency Medicine; PCP Family Medicine Adolescent Medicine; Visit Provider Physician Assistant
DX: N39.0 Urinary tract infection, site not specified (principal); B96.20 Unspecified Escherichia coli [E. coli] as the cause of diseases classified elsewhere; G20 Parkinson's disease; R53.1 Weakness; R63.0 Anorexia; R13.10 Dysphagia, unspecified; R63.4 Abnormal weight loss; Z20.822 Contact with and (suspected) exposure to COVID-19; Z68.1 Body mass index [BMI] 19.9 or less, adult; E43 Unspecified severe protein-calorie malnutrition; G23.1 Progressive supranuclear ophthalmoplegia [Steele-Richardson-Olszewski]; F32.A Depression, unspecified; E11.9 Type 2 diabetes mellitus without complications; E78.00 Pure hypercholesterolemia, unspecified; R62.7 Adult failure to thrive; R94.31 Abnormal electrocardiogram [ECG] [EKG]; E55.9 Vitamin D deficiency, unspecified; Z99.3 Dependence on wheelchair; Z79.82 Long term (current) use of aspirin; Z79.899 Other long term (current) drug therapy; Z82.49 Family history of ischemic heart disease and other diseases of the circulatory system
CPT/HCPCS: 36415; 71046; 80048; 80053; 81001; 82948; 85025; 85027; 85055; 87077; 87086; 87186; 87637; 92526; 92611; 93005; 96361; 96365; 96376; 99285; A9270; G0378; J0696; J7120

== ENCOUNTER 2023-06-14 10:59 | Outpatient (CLI) | payer MEDICARE, SELFPAY | END 2023-06-14 11:00 | disposition home or self-care (01) | LOC: ANHAUDIO 11:01 | PROVIDERS: PCP Family Medicine Adolescent Medicine; Visit Provider Otolaryngology | DX: H90.3 Sensorineural hearing loss, bilateral (principal) | CPT/HCPCS: 92557; 92567 ==

== ENCOUNTER 2023-10-11 15:03 | Inpatient (IN) | payer MEDICARE, SELFPAY ==
[2023-10-11] VITALS (20 sets, daily range): BP systolic 120–160; BP diastolic 71–115; PULSE 60–106; RESP 11–20; TEMP 36.3–36.8; O2SAT 87–100; BMI 16.4
--- NOTE | ~2023-10-11 | MR_ITS ---
MRI of the brain Clinical History: CVA Technique: Axial and sagittal T1-weighted images were acquired. These were followed by axial T2-weigh ami, diffusion weighted, gradient, and FLAIR images. Following intravenous administration of 8 cc Mul tiHance gadolinium, T1-weighted fat-sat imaging was performed in the axial and coronal planes. Findings: No acute infarct, internal hemorrhage or mass lesion identified. There are probable focal o ld infarcts in the right frontal and left parietal lobes. There are extensive chronic white matter ch anges, consistent with chronic microvascular ischemic change. Ventricles and subarachnoid spaces are dilated. Orbits are unremarkable. Paranasal sinuses and mastoi d air cells are clear. Major intracranial flow voids are intact. Sagittal midline structures are intact. No abnormal postcontrast enhancement identified. IMPRESSION: No acute abnormality seen. 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 Zqba-vy-kwpnrwku generalized atrophy. Reviewed, dictated and finalized at [facility]. ENGINEER IMPRESSION: No acute abnormality seen. Extensive chronic microvascular ischemic change, with focal old infarcts in the right frontal and parietal lobes. Tdwi-fv-eylthzsy generalized atrophy.
--- NOTE | ~2023-10-11 | XR_ITS ---
EXAMINATION: XR chest 1V DATE: 10/11/2023 16:07 INDICATION: Altered mental status. TECHNIQUE: A single frontal view of the chest was obtained. COMPARISON: Chest 2 views 01/25/2023 FINDINGS: The patient is rotated to her right. Skinfolds overlie left chest. There is no pneumonia, p leural effusion, or pneumothorax. The heart size is normal. IMPRESSION: 1. No acute cardiopulmonary disease. Reviewed, dictated and finalized at location E. RANCE EXECUTIVE
--- NOTE | ~2023-10-11 | CT_ITS ---
EXAMINATION: CT brain wo con INDICATION: Altered mental status COMPARISON: 10/26/2021 TECHNIQUE: Standard unenhanced head CT. The dose-length product (DLP) was 681.00 mGy-cm. The mA was a djusted according to patient size. Iterative reconstruction technique was employed. FINDINGS: No acute intraparenchymal hemorrhage. No evidence of mass lesion. No evidence of acute infa rction. There is mild periventricular and subcortical hypodensity probably related to small vessel is chemic disease. There is mild prominence of the sulci and ventricles related to cerebral atrophy. Int racranial calcified cerebral atherosclerosis is noted. No extra-axial collections. No mass effect or midline shift. Changes in the globes are likely from ocular lens surgery. The visualized sinuses and mastoid air cells are well aerated. IMPRESSION: 1. No acute intracranial abnormality. 2. Age related findings. Reviewed, dictated and finalized at location L. DEVELOPMENT INSTRUCTOR
--- NOTE | 2023-10-11 15:09 | ECG_ITS ---
Measurements Intervals [place] Rate: 57 P: AL: 0 QRS: -38 QRSD: 153 T: 114 QT: 435 QTc: 425 Interpretive Statements POSSIBLE aTRIAL FIBRILLATION WITH SLOW VENTRICULAR RESPONSE MARKED bASELINE ARTIFACT MARKED LEFT AXIS DEVIATION [QRS AXIS < -30] NONSPECIFIC INTRAVENTRICULAR CONDUCTION DELAY ABNORMAL ECG COMPARED TO ECG 01/25/2023 21:25:03 POSSIBLE aTRIAL FIBRILLATION NOW PRESENT Electronically Signed On 10-12-2023 15:30:15 [employer]OR BOSS by Reji Bailey M.D.
--- NOTE | 2023-10-11 15:11 | ED.AMS ---
HPI - Altered Mental Status General Chief Complaint: Altered Mental Status Stated Complaint: ams History of Present Illness HPI narrative: patient brought to the emergency department by EMS from home. She has history of Parkinson's. At baseline she is alert and oriented per EMS But needs significant assistance with mobility. Today family could not wake the patient up. Took her to the bathroom and she was able to urinate. However she was very drowsy when not respond to them. Per EMS she improved during transport. Now she opens her eyes and looks over at person talking to her. She answers basic questions with simple answers. Related Data Home Medications Medication Instructions Recorded Confirmed ascorbate calcium (vitamin C) 500 1,000 mg PO DAILY 06/03/22 04/18/23 mg tablet aspirin 81 mg capsule 81 mg PO DAILY 06/03/22 04/18/23 biotin 10,000 mcg capsule 1,000 mcg PO DAILY 06/03/22 04/18/23 cholecalciferol (vitamin D3) 25 25 mcg PO DAILY 06/03/22 04/18/23 mcg (1,000 unit) capsule oacpfsnntgoc-Au-ucdk-minerals 18 1 tablet PO DAILY 06/03/22 04/18/23 mg-0.4 mg tablet amantadine HCl 100 mg capsule 100 mg PO BID 09/06/22 04/18/23 quetiapine 50 mg tablet 50 mg PO QHS 02/28/23 04/18/23 Allergies Allergy/AdvReac Type Severity Reaction Status Date / Time chlorthalidone Allergy Mild Rash Verified 10/11/23 15:23 codeine Allergy Unknown Rash Verified 10/11/23 15:23 tramadol Allergy Unknown Rash Verified 10/11/23 15:23 Review of Systems Review of Systems: unable to obstain due to mental status changes [facility] Past Medical History Medical History Allergic rhinitis Bilateral foot-drop Depression Diabetes Dysarthria High cholesterol HTN (hypertension) Lumbar spinal stenosis Parkinson disease Progressive supranuclear palsy Vitamin D deficiency Surgical History Surgical History History of appendectomy History of arthroscopic surgery of shoulder left shoulder S/P ORIF (open reduction internal fixation) fracture Right lower leg Family History Family History Father Asthma Heart disease Mother Ovarian cancer Other Acute myocardial infarction Diabetes mellitus Social History Social History Smoking status: Never smoker Alcohol intake: never Substance use: never Lack of Transportation: No Lack of Food: Never True Current Housing: I Have Housing Concerned About Future Housing: No Difficulty Paying Gas/Electric Bills: No Difficulty Paying for Meds: No Currently Unemployed: No Education: High School Diploma/GED Difficulty w/ Childcare or Family Care: No Living arrangements: with family Additional living arrangements comments: Lives at home with and youngest son. Occupation/Education: unemployed Gender identity (if verbalized by the patient): Female Spiritual care concerns: No Exam Narrative: GENERAL: contracted, drowsy, opens eyes, quiet brief answers. HEAD: Normocephalic, atraumatic. EYES: PERRLA and EOMI. ENT: Nares clear, no rhinorrhea or epistaxis. Mucous membranes moist. NECK: Supple. CHEST: Clear to auscultation. No respiratory distress. HEART: Regular rate and rhythm. ABDOMEN: Soft, nontender, nondistended. EXTREMITIES: contracted. No edema. SKIN: Warm, dry, no rash. NEURO: No focal deficits. Alert and oriented person and time but not place. PSYCH: Normal mood and affect. Course Vital Signs Vital signs: Vital Signs Temperature 36.3 C L 10/11/23 15:04 Pulse Rate 81 10/11/23 15:04 Respiratory Rate 13 10/11/23 15:04 Blood Pressure 153/96 H 10/11/23 15:04 Pulse Oximetry 98 10/11/23 15:04 Oxygen Delivery Room Air 10/11/23 15:04 Temperature 36.5 C 10/11/23 19:22 Pulse Rate 87
[2023-10-11 15:15] LABS: Glucose Point of Care 140 mg/dl (65-105)
[2023-10-11 15:21] LABS: Basophils Absolute Auto 0.1 K/mm3 (0.0-0.1); Basophils Percent Auto 1.3 % (0.2-1.2); Eosinophils Absolute Auto 0.1 K/mm3 (0-0.3); Eosinophils Percent Auto 1.8 % (0-4.4); Hematocrit 40.4 % (37.0-47.0); Hemoglobin 12.9 g/dL (12.0-15.0); Immature Granulocyte Absolute 0.01 K/mm3 (0.00-0.031); Immature Granulocyte Percent A 0.2 % (0-0.5); Lymphocytes Absolute Auto 2.01 K/mm3 (0.9-3.2); Lymphocytes Percent Auto 36.7 % (18.3-44.2); Mean Corpuscular HGB Conc 31.9 g/dl (32-36); Mean Corpuscular Hemoglobin 32.9 pg (26-34); Mean Corpuscular Volume 103.1 fl (80-100); Mean Platelet Volume 9.8 fl (7.4-10.4); Monocytes Absolute Auto 0.5 K/mm3 (0.1-0.6); Monocytes Percent Auto 8.6 % (2.6-8.5); Neutrophils Absolute Auto 2.8 K/mm3 (1.3-6.7); Neutrophils Percent Auto 51.4 % (45.5-73.1); Platelet Count Result 141 k/mm3 (150-375); Red Blood Count 3.92 M/mm3 (4.2-5.4); Red Cell Distribution Width 12.4 % (11.5-14.5); White Blood Count 5.5 K/mm3 (4.5-10.0)
[2023-10-11 15:30] LABS: Alanine Aminotransferase 29 U/L (6-35); Albumin Level 4.4 g/dL (3.5-5.1); Alkaline Phosphatase 99 U/L (38-126); Anion Gap 7 mmol/L (8-16); Aspartate Amino Transferase 37 U/L (14-36); Bilirubin,Total 1.1 mg/dL (0.2-1.3); Blood Urea Nitrogen 27 mg/dL (7-17); Carbon Dioxide 29 mmol/L (22-30); Chloride 104 mmol/L (98-107); Estimated CRCL calculation 62 ml/min; Estimated Glomerular Filt Rate > 60; Glucose 172 mg/dL (65-110); Potassium 4.2 mmol/L (3.4-5.0); Sodium 140 mmol/L (137-145)
[2023-10-11 15:31] LABS: INR 1.1; Prothrombin Time 14.9 Seconds (11.1-14.7)
[2023-10-11 15:41] LABS: Troponin I < 0.012 ng/mL (0.000-0.034)
[2023-10-11 16:37] LABS: Appearance Urine Clear (Clear); Bilirubin Urine Negative (Negative); Blood Urine Negative (Negative); Color Urine Dark Yellow (Yellow); Glucose Urine UA Negative (Negative); Ketones Urine 1+ mg/dL (Negative); Leukocyte Esterase Ur Negative LEU/UL (Negative); Nitrate Urine Negative (Negative); Protein Urine Negative (Negative); Specific Grav Ur 1.013 (1.001-1.035); Urobilinogen Urine 0.2 mg/dL (<2.0); pH Urine 7.5 (5.0-9.0)
[2023-10-11 16:48] LABS: Add Urine Microscopic? NO
[2023-10-11 18:28] LABS: Glucose Point of Care 79 mg/dl (65-105)
[2023-10-11 19:07] LABS: Alveolar/Arterial O2 Gradient 2.8 mmHg; Base Excess ABG 6.3 mEq/l (+/-2.0); Fractional Inspired Oxygen 21 %; HCO3 ABG 31.6 mEq/l (22.0-26.0); Oxygen Content ABG 18.5 %vol (16.0-22.0); Oxyhemoglobin 95.5 % THb (90.0-100.0); PCO2 ABG 47.8 mmHg (35.0-45.0); PO2 ABG 89.7 mmHg (80.0-100.0); PO2 FiO2 Ratio Arterial Blood 4.27 %; Total Hemoglobin 13.7 g/dL (12.0-18.0); pH ABG 7.438 (7.350-7.450)
[2023-10-11 19:08] LABS: Device ROOM AIR; Site Drawn LEFT BRACHIAL
--- NOTE | 2023-10-11 19:11 | PC.NURSE ---
Report given to Tnao CUNNINGHAM, all questions answered.
--- NOTE | 2023-10-11 19:58 | PM.IMHP ---
H&P: HPI History of Present Illness Date/Time: 10/11/23 19:58 Chief Complaint: ams Narrative: This is a 73-year-old female with past medical history significant for Parkinson's disease, protein calorie malnutrition, dysphagia, adult failure to thrive, patient is a bedbound, decubitus ulcer. Was brought for evaluation due to altered mental status as per EXAMINATION: XR chest 1V DATE: 10/11/2023 16:07 INDICATION: Altered mental status. TECHNIQUE: A single frontal view of the chest was obtained. COMPARISON: Chest 2 views 01/25/2023 FINDINGS: The patient is rotated to her right. Skinfolds overlie left chest. There is no pneumonia, pleural effusion, or pneumothorax. The heart size is normal. IMPRESSION: 1. No acute cardiopulmonary disease. EXAMINATION: CT brain wo con ? INDICATION: Altered mental status ? COMPARISON: 10/26/2021 TECHNIQUE: Standard unenhanced head CT. The dose-length product (DLP) was 681.00 mGy-cm. The mA was adjusted according to patient size. Iterative reconstruction technique was employed. ? FINDINGS: No acute intraparenchymal hemorrhage. No evidence of mass lesion. No evidence of acute infarction. There is mild periventricular and subcortical hypodensity probably related to small vessel ischemic disease. There is mild prominence of the sulci and ventricles related to cerebral atrophy. Intracranial calcified cerebral atherosclerosis is noted. No extra-axial collections. No mass effect or midline shift. Changes in the globes are likely from ocular lens surgery. The visualized sinuses and mastoid air cells are well aerated. IMPRESSION: 1. No acute intracranial abnormality. 2. Age related findings. Rate 57 HI 0 QRSd 153 QT 435 QTc 425 --Eliot-- P QRS -38 T 114 ATRIAL FIBRILLATION WITH SLOW VENTRICULAR RESPONSE MARKED LEFT AXIS DEVIATION [QRS AXIS < -30] INTRAVENTRICULAR CONDUCTION DELAY [130+ ms QRS DURATION] COMPARED TO ECG 01/25/2023 21:25:03 ATRIAL FIBRILLATION NOW PRESENT INTRAVENTRICULAR CONDUCTION DELAY NOW PRESENT Review of Systems Review of Systems: lethargy ROS unobtainable: Yes unobtainable due to mental status [facility] Past Medical History Medical History Allergic rhinitis Bilateral foot-drop Depression Diabetes Dysarthria High cholesterol HTN (hypertension) Lumbar spinal stenosis Parkinson disease Progressive supranuclear palsy Vitamin D deficiency Surgical History Surgical History History of appendectomy History of arthroscopic surgery of shoulder left shoulder S/P ORIF (open reduction internal fixation) fracture Right lower leg Family History Family History Father Asthma Heart disease Mother Ovarian cancer Other Acute myocardial infarction Diabetes mellitus Social History Social History Smoking status: Former smoker Alcohol intake: never Substance use: never Lack of Transportation: No Lack of Food: Never True Current Housing: I Have Housing Concerned About Future Housing: No Difficulty Paying Gas/Electric Bills: No Difficulty Paying for Meds: No Currently Unemployed: No Education: High School Diploma/GED Difficulty w/ Childcare or Family Care: No Living arrangements: with family Additional living arrangements comments: Lives at home with and youngest son. Occupation/Education: unemployed Gender identity (if verbalized by the patient): Female Spiritual care concerns: No Meds Home Medications and Allergies Home Medications Medication Instructions Recorded Confirmed Type ascorbate calcium (vitamin C) 500 1,000 mg PO DAILY 06/03/22 10/12/23 History mg tablet aspirin 81 mg capsule 81 mg PO DAILY 06/03/22 10/12/23 History biotin 10,000 mcg capsule 1,000 mcg PO DAILY 06/03/22 10/12/23 H
[2023-10-11] MEDS: levETIRAcetam 500MG/NACL 100ML 500 MG/100 ML BAG 400 MG IVPB (20:02)
[2023-10-12] VITALS (8 sets, daily range): BP systolic 119–145; BP diastolic 60–72; PULSE 58–94; RESP 16–17; TEMP 36.4–36.8; O2SAT 95–100
[2023-10-12 07:56] LABS: Hematocrit 37.4 % (37.0-47.0); Hemoglobin 12.1 g/dL (12.0-15.0); Mean Corpuscular HGB Conc 32.4 g/dl (32-36); Mean Corpuscular Hemoglobin 33.2 pg (26-34); Mean Corpuscular Volume 102.5 fl (80-100); Mean Platelet Volume 9.9 fl (7.4-10.4); Platelet Count Result 148 k/mm3 (150-375); Red Blood Count 3.65 M/mm3 (4.2-5.4); Red Cell Distribution Width 12.4 % (11.5-14.5); White Blood Count 7.1 K/mm3 (4.5-10.0)
[2023-10-12 08:13] LABS: Alanine Aminotransferase 26 U/L (6-35); Alkaline Phosphatase 103 U/L (38-126); Anion Gap 6 mmol/L (8-16); Aspartate Amino Transferase 38 U/L (14-36); Bilirubin,Total 0.9 mg/dL (0.2-1.3); Blood Urea Nitrogen 26 mg/dL (7-17); Calcium 9.3 mg/dL (8.4-10.2); Carbon Dioxide 27 mmol/L (22-30); Chloride 107 mmol/L (98-107); Estimated CRCL calculation 54 ml/min; Estimated Glomerular Filt Rate > 60; Glucose 58 mg/dL (65-110); Potassium 3.6 mmol/L (3.4-5.0); Sodium 140 mmol/L (137-145)
[2023-10-12] MEDS: DEXTROSE 50% 25 GM/50 ML SYRINGE IV PUSH (08:35)
[2023-10-12 09:06] LABS: Glucose Point of Care 104 mg/dl (65-105)
[2023-10-12 12:14] LABS: Glucose Point of Care 71 mg/dl (65-105)
[2023-10-12 12:21] LABS: Glucose Point of Care 70 mg/dl (65-105)
--- NOTE | 2023-10-12 12:32 | PM.IMPN ---
Progress Note: A&P Assessment and Plan (1) Acute alteration in mental status: Code(s): R41.82 - Altered mental status, unspecified Status: Acute Assessment and Plan: Patient presented to the ED due to altered mental status after being found by stating that she was changed from baseline. According the patient whispers and is very hard to understand. Patient is now not talking and will occasionally nod her head yes or no. CBC, CMP and urine without sign of infection Head CT no acute intracranial process. Chest x-ray no acute cardiopulmonary process. MRI ordered. NPO due to altered mental status. IV fluids with NS/D5 Patient was on Macrobid recently that does cause alteration in mental status in the elderly. Will discontinue. Patient's UTI treated to completion. (2) Dementia: Code(s): F03.90 - Unspecified dementia, unspecified severity, without behavioral disturbance, psychotic disturbance, mood disturbance, and anxiety Status: Acute Assessment and Plan: chronic. Continue home meds. (3) Chronic low back pain with sciatica: Code(s): M54.40 - Lumbago with sciatica, unspecified side; G89.29 - Other chronic pain Status: Acute Assessment and Plan: Pain medication p.r.n. (4) Protein calorie malnutrition: Qualifiers: Protein-calorie malnutrition severity: severe Qualified Code(s): E43 - Unspecified severe protein-calorie malnutrition Code(s): E46 - Unspecified protein-calorie malnutrition Status: Acute Assessment and Plan: dietary supplements. (5) Dysphagia: Qualifiers: Dysphagia type: unspecified Qualified Code(s): R13.10 - Dysphagia, unspecified Code(s): R13.10 - Dysphagia, unspecified Status: Acute Assessment and Plan: Pantoprazole daily (6) Parkinson disease: Code(s): G20 - Parkinson's disease Status: Chronic Assessment and Plan: continue home medications Subjective Date/time seen: 10/12/23 12:32 Interval history: Patient is altered and unable to answer any questions or respond to me. Discussed with nursing staff and will make patient NPO due to state of consciousness. MRI ordered. Plan to do speech evaluation once patient is more alert. According to family patient was very soft spoken and whispered occasionally when communicating. She is wheelchair-bound at baseline. Exam Narrative: GENERAL: Comfortable, no acute distress, thin HENMT: moist mucous membranes EYES: inflamed right conjunctiva with swallow amount of swelling and pus present RESPIRATORY: clear to auscultation CARDIO: RRR GI: soft, nontender, bowel sounds present SKIN: no rashes EXTREMITIES: no edema, redness or tenderness Objective Data Vital Signs Vital Signs: Vital Signs - 24 hr 10/11/23 15:04 10/11/23 15:20 10/11/23 15:14 Temperature 97.4 F L Pulse Rate 81 86 Respiratory Rate 13 13 Blood Pressure 153/96 H 153/96 H Pulse Oximetry 98 98 96 Oxygen Delivery Room Air Room Air 10/11/23 15:16 10/11/23 15:31 10/11/23 15:46 Temperature Pulse Rate 106 H 64 Respiratory Rate 20 15 Blood Pressure 155/97 H 159/93 H 154/88 H Pulse Oximetry 97 90 Oxygen Delivery 10/11/23 16:09 10/11/23 16:16 10/11/23 16:31 Temperature Pulse Rate 84 64 61 Respiratory Rate 13 11 L 14 Blood Pressure 157/100 H 146/103 H 156/115 H Pulse Oximetry 100 Oxygen Delivery 10/11/23 16:46 10/11/23 17:01 10/11/23 17:16 Temperature Pulse Rate 76 75 60 Respiratory Rate 15 18 16 Blood Pressure 160/84 H 136/93 H 133/95 H Pulse Oximetry Oxygen Delivery 10/11/23 17:31 10/11/23 17:46 10/11/23 18:01 Temperature Pulse Rate 68 79 72 Respiratory Rate 11 L 14 14 Blood Pressure 137/88 120/93 H 138/86 Pulse Oximetry Oxygen Delivery 10/11/23 18:18 10/11/23 19:22 10/11/23 19:22 Temperature 97.7 F Pulse Rate 62 88 87 Resp
[2023-10-12] MEDS: DEXTROSE 5%/0.45% SOD CHL 1,000 ML 100 ML IV CONT ×2 (12:41→22:52)
[2023-10-12] MEDS: ERYTHROMYCIN OPHTH OINTMENT 1 GM TUBE 1 APPLIC EACH EYE ×3 (14:37→20:46)
[2023-10-12 17:49] LABS: Glucose Point of Care 122 mg/dl (65-105)
--- NOTE | 2023-10-12 20:38 | PC.NURSE ---
WILLI ALCARAZ RECEIVED ORDER TO INSERT CHIRINOS, UNABLE TO INSERT, 16 [address] CHIRINOS INSERTED
[2023-10-13] VITALS (10 sets, daily range): BP systolic 120–140; BP diastolic 62–70; PULSE 58–86; RESP 16–20; TEMP 36.4–37; O2SAT 95–100
[2023-10-13 00:08] LABS: Glucose Point of Care 134 mg/dl (65-105)
--- NOTE | 2023-10-13 04:12 | PC.NURSE ---
URINE NOTED ON PAD, ADJUSTED CHIRINOS, 150CC URINE IN BAG
[2023-10-13] MEDS: ERYTHROMYCIN OPHTH OINTMENT 1 GM TUBE 1 APPLIC EACH EYE ×4 (04:36→16:41)
[2023-10-13 04:54] LABS: Hematocrit 34.3 % (37.0-47.0); Hemoglobin 11.1 g/dL (12.0-15.0); Mean Corpuscular HGB Conc 32.4 g/dl (32-36); Mean Corpuscular Hemoglobin 33.4 pg (26-34); Mean Corpuscular Volume 103.3 fl (80-100); Mean Platelet Volume 10.1 fl (7.4-10.4); Platelet Count Result 129 k/mm3 (150-375); Red Blood Count 3.32 M/mm3 (4.2-5.4); Red Cell Distribution Width 12.5 % (11.5-14.5); White Blood Count 6.5 K/mm3 (4.5-10.0)
[2023-10-13 05:12] LABS: Alanine Aminotransferase 21 U/L (6-35); Albumin Level 3.4 g/dL (3.5-5.1); Alkaline Phosphatase 84 U/L (38-126); Anion Gap 3 mmol/L (8-16); Aspartate Amino Transferase 27 U/L (14-36); Blood Urea Nitrogen 22 mg/dL (7-17); Carbon Dioxide 29 mmol/L (22-30); Chloride 104 mmol/L (98-107); Estimated CRCL calculation 54 ml/min; Estimated Glomerular Filt Rate > 60; Glucose 150 mg/dL (65-110); Potassium 3.3 mmol/L (3.4-5.0); Sodium 136 mmol/L (137-145)
[2023-10-13 05:40] LABS: Glucose Point of Care 160 mg/dl (65-105)
[2023-10-13] MEDS: POTASSIUM CHLORIDE INJ 40 MEQ in SODIUM CHLORIDE 0.9% IV 500 ML 130 MEQ IVPB (08:28)
[2023-10-13 12:15] LABS: Glucose Point of Care 90 mg/dl (65-105)
[2023-10-13] MEDS: DEXTROSE 5%/0.45% SOD CHL 1,000 ML 75 ML IV CONT (14:33)
--- NOTE | 2023-10-13 15:49 | PM.IMPN ---
Progress Note: A&P Assessment and Plan (1) Acute alteration in mental status: Code(s): R41.82 - Altered mental status, unspecified Status: Acute Assessment and Plan: Patient presented to the ED due to altered mental status after being found by stating that she was changed from baseline. According the patient whispers and is very hard to understand. Patient is now not talking and will occasionally nod her head yes or no. CBC, CMP and urine without sign of infection Head CT no acute intracranial process. Chest x-ray no acute cardiopulmonary process. 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 No acute findings. NPO due to altered mental status. IV fluids with NS/D5 Patient was on Macrobid recently that does cause alteration in mental status in the elderly. Will discontinue. Patient's UTI treated to completion. (2) Dementia: Code(s): F03.90 - Unspecified dementia, unspecified severity, without behavioral disturbance, psychotic disturbance, mood disturbance, and anxiety Status: Acute Assessment and Plan: chronic. Hold home meds while NPO (3) Chronic low back pain with sciatica: Code(s): M54.40 - Lumbago with sciatica, unspecified side; G89.29 - Other chronic pain Status: Acute Assessment and Plan: Pain medication p.r.n. (4) Protein calorie malnutrition: Qualifiers: Protein-calorie malnutrition severity: severe Qualified Code(s): E43 - Unspecified severe protein-calorie malnutrition Code(s): E46 - Unspecified protein-calorie malnutrition Status: Acute Assessment and Plan: dietary supplements. (5) Dysphagia: Qualifiers: Dysphagia type: unspecified Qualified Code(s): R13.10 - Dysphagia, unspecified Code(s): R13.10 - Dysphagia, unspecified Status: Acute Assessment and Plan: IV pantoprazole (6) Parkinson disease: Code(s): G20 - Parkinson's disease Status: Chronic Assessment and Plan: home medications on hold due to NPO status Subjective Date/time seen: 10/13/23 15:49 Interval history: Patient able to respond by opening her eyes and nodding her head yes or no. Had a very long discussion with patient's about patient's care in the future. Hospice care was brought up to patient's . Thorough discussion made about how patient is likely at her new baseline. The more patient's discussed her health the more it seems apparent that patient has been declining for several weeks now. He is very concerned about patient's oral intake and brought up wanting patient to have a feeding tube. Attempted to explain to him that a feeding tube may not help her overall mental state. Advised that patient discuss further with his family about the future care of the patient. I believe patient would benefit from hospice care. Exam Narrative: GENERAL: Comfortable, no acute distress, thin HENMT: moist mucous membranes EYES: inflamed right conjunctiva improving RESPIRATORY: clear to auscultation CARDIO: RRR GI: soft, nontender, bowel sounds present SKIN: no rashes EXTREMITIES: no edema, redness or tenderness Objective Data Vital Signs Vital Signs: Vital Signs - 24 hr 10/12/23 16:00 10/12/23 16:00 10/12/23 20:00 Temperature 97.9 F 97.7 F Pulse Rate 90 66 58 L Respiratory Rate 16 17 Blood Pressure 128/72 140/69 Pulse Oximetry 99 100 Oxygen Delivery 10/12/23 20:00 10/12/23 23:58 10/13/23 00:00 Temperature 97.5 F L Pulse Rate 75 62 58 L Respiratory Rate 16 Blood Pressure 145/68 H Pulse Oximetry 95 Oxygen Delivery 10/13/23 03:31 10/13/23 04:00 10/13/23 08:19 Temperature 98.6 F Pulse Rate 76 65 74 Respiratory Rate 16 Blood Pressure 120/69 Pulse Oximetry 96 Oxygen Delivery 10/13/23 08:28 10/13/23 12:01 10/13/23 12:00 Temperature 98.3 F Pulse Rate 65 64 Resp
[2023-10-13 17:35] LABS: Glucose Point of Care 86 mg/dl (65-105)
[2023-10-14] VITALS (9 sets, daily range): BP systolic 113–147; BP diastolic 56–79; PULSE 63–90; RESP 12–18; TEMP 35.8–36.5; O2SAT 98–100; BMI 16.4
[2023-10-14 00:17] LABS: Glucose Point of Care 123 mg/dl (65-105)
[2023-10-14 04:01] LABS: Glucose Point of Care 109 mg/dl (65-105)
[2023-10-14] MEDS: WATER FOR IRRIGATION, STERILE 1,000 ML BOTTLE 1000 ML (05:30)
[2023-10-14] MEDS: ERYTHROMYCIN OPHTH OINTMENT 1 GM TUBE 1 APPLIC EACH EYE ×5 (05:30→21:19)
[2023-10-14 06:04] LABS: Hematocrit 39.4 % (37.0-47.0); Hemoglobin 12.8 g/dL (12.0-15.0); Mean Corpuscular HGB Conc 32.5 g/dl (32-36); Mean Corpuscular Hemoglobin 33.3 pg (26-34); Mean Corpuscular Volume 102.6 fl (80-100); Mean Platelet Volume 9.7 fl (7.4-10.4); Platelet Count Result 120 k/mm3 (150-375); Red Blood Count 3.84 M/mm3 (4.2-5.4); Red Cell Distribution Width 12.3 % (11.5-14.5); White Blood Count 6.4 K/mm3 (4.5-10.0)
[2023-10-14] MEDS: DEXTROSE 5%/0.45% SOD CHL 1,000 ML 75 ML IV CONT ×2 (06:11→20:05)
[2023-10-14 06:22] LABS: Alanine Aminotransferase 21 U/L (6-35); Albumin Level 3.7 g/dL (3.5-5.1); Alkaline Phosphatase 87 U/L (38-126); Anion Gap 3 mmol/L (8-16); Aspartate Amino Transferase 29 U/L (14-36); Bilirubin,Total 1.1 mg/dL (0.2-1.3); Blood Urea Nitrogen 10 mg/dL (7-17); Carbon Dioxide 28 mmol/L (22-30); Chloride 107 mmol/L (98-107); Estimated CRCL calculation 65 ml/min; Estimated Glomerular Filt Rate > 60; Glucose 131 mg/dL (65-110); Potassium 3.7 mmol/L (3.4-5.0); Sodium 138 mmol/L (137-145)
[2023-10-14 08:06] LABS: Glucose Point of Care 137 mg/dl (65-105)
[2023-10-14 11:52] LABS: Glucose Point of Care 102 mg/dl (65-105)
--- NOTE | 2023-10-14 12:05 | PM.IMPN ---
Progress Note: A&P Assessment and Plan (1) Acute alteration in mental status: Code(s): R41.82 - Altered mental status, unspecified Status: Acute Assessment and Plan: Patient presented to the ED due to altered mental status after being found by stating that she was changed from baseline. According the patient whispers and is very hard to understand. Patient is now not talking and will occasionally nod her head yes or no. CBC, CMP and urine without sign of infection Head CT no acute intracranial process. Chest x-ray no acute cardiopulmonary process. 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 No acute findings. NPO due to altered mental status. IV fluids with NS/D5 Patient was on Macrobid recently that does cause alteration in mental status in the elderly. Will discontinue. Patient's UTI treated to completion. (2) Protein calorie malnutrition: Qualifiers: Protein-calorie malnutrition severity: severe Qualified Code(s): E43 - Unspecified severe protein-calorie malnutrition Code(s): E46 - Unspecified protein-calorie malnutrition Status: Acute Assessment and Plan: Severe malnutrition. Speech therapy evaluation recommending patient's stay NPO status for now. Discussed G-tube with the family and they would like a GI consultation to see if patient would qualify for surgery. Discussed with dietitian and she is in agreement that G-tube is likely necessary. (3) Dementia: Code(s): F03.90 - Unspecified dementia, unspecified severity, without behavioral disturbance, psychotic disturbance, mood disturbance, and anxiety Status: Acute Assessment and Plan: chronic. Hold home meds while NPO (4) Chronic low back pain with sciatica: Code(s): M54.40 - Lumbago with sciatica, unspecified side; G89.29 - Other chronic pain Status: Acute Assessment and Plan: Pain medication p.r.n. (5) Dysphagia: Qualifiers: Dysphagia type: unspecified Qualified Code(s): R13.10 - Dysphagia, unspecified Code(s): R13.10 - Dysphagia, unspecified Status: Acute Assessment and Plan: IV pantoprazole (6) Parkinson disease: Code(s): G20 - Parkinson's disease Status: Chronic Assessment and Plan: home medications on hold due to NPO status Subjective Date/time seen: 10/14/23 12:05 Interval history: Patient able to open her eyes and slightly shake her head yes no discussed patient's as well as their [id number] about the care. They would like GI to do an evaluation with patient to see if she is a candidate for G-tube placement under anesthesia. Family members discussing whether not if they want to go through with hospice or not. Discussed this with care coordination. Exam Narrative: GENERAL: Comfortable, no acute distress, thin HENMT: moist mucous membranes EYES: inflamed right conjunctiva improving RESPIRATORY: clear to auscultation CARDIO: RRR GI: soft, nontender, bowel sounds present SKIN: no rashes EXTREMITIES: no edema, redness or tenderness Objective Data Vital Signs Vital Signs: Vital Signs - 24 hr 10/13/23 16:03 10/13/23 16:00 10/13/23 20:00 Temperature 98.2 F 97.5 F L Pulse Rate 86 67 71 Respiratory Rate 20 18 Blood Pressure 140/67 128/62 Pulse Oximetry 99 95 Oxygen Delivery 10/13/23 20:00 10/14/23 00:00 10/14/23 00:00 Temperature 96.8 F L Pulse Rate 71 63 69 Respiratory Rate 18 18 Blood Pressure 131/63 Pulse Oximetry 95 99 Oxygen Delivery Room Air 10/14/23 03:35 10/14/23 04:00 10/14/23 08:35 Temperature 96.5 F L 97.4 F L Pulse Rate 83 63 69 Respiratory Rate 18 12 Blood Pressure 126/75 113/56 L Pulse Oximetry 100 100 Oxygen Delivery Intake/Output Intake/Output: Intake & Output 10/11/23 10/12/23 10/13/23 10/14/23 23:59 23:59 23:59 23:59 Intake Total 100 1000 1000 1000 Outpu
--- NOTE | 2023-10-14 13:56 | WPDGICN ---
Assessment and Plan Assessment and plan (1) Encephalopathy acute: Code(s): G93.40 - Encephalopathy, unspecified Status: Acute Assessment and Plan: she is not talking or interacting much primary team asking to consider G-tube evaluation at bedside, he says that is considering hospice consult. I talked him that he can talk to his family, we are not planning to place G-tube anyway during weekend holiday patient will have speech therapy evaluation (2) Parkinson disease: Code(s): G20 - Parkinson's disease Status: Chronic (3) Progressive supranuclear palsy: Code(s): G23.1 - Progressive supranuclear ophthalmoplegia [[id number]] Status: Chronic (4) Dementia: Code(s): F03.90 - Unspecified dementia, unspecified severity, without behavioral disturbance, psychotic disturbance, mood disturbance, and anxiety Status: Acute Assessment and Plan: mri brain with chronic infaction (5) Protein calorie malnutrition: Qualifiers: Protein-calorie malnutrition severity: severe Qualified Code(s): E43 - Unspecified severe protein-calorie malnutrition Code(s): E46 - Unspecified protein-calorie malnutrition Status: Acute Assessment and Plan: poor oral intake (6) Dysphagia: Qualifiers: Dysphagia type: unspecified Qualified Code(s): R13.10 - Dysphagia, unspecified Code(s): R13.10 - Dysphagia, unspecified Status: Acute GI Consult Note Consult date/time: 10/14/23 13:56 Reason for consult: failure to thrive HPI: Ayah Schmidt is a 73 year old female who is known to our group from previous hospitalization. She has severe Parkinson's syndrome and some dementia.? She has been seen by [facility] neurology for supranuclear ophthalmoplegia.?She has lost weight over last year and in fact has seen Dr De Santiago in the office on 09/2022, she actually was eating pureed diet with assistance and maintaining her weight, decision was to hold off on G-tube placement then she presented earlier this year to the hospital with failure to thrive in setting of UTI infection, again family decided to wait on PEG placement and finally she went home. is giving all history as patient is not talking. He says that last time she had a good meal was just 3 days before her admission then she became confused and was having hallucinations, treated by her PCP for UTI but was not getting better therefore taken to the ED due to altered mental status, patient is now not talking and will occasionally nod her head yes or no. MRI brain chronic infarcts, no acute findings. Review of Systems Review of Systems: ROS unobtainable: Yes unobtainable due to medical condition and unobtainable due to mental status PMFSH Past Medical History Medical History (Updated 10/14/23 @ 14:02 by Syed Hernandez MD) Allergic rhinitis Bilateral foot-drop Depression Diabetes Dysarthria Encephalopathy acute High cholesterol HTN (hypertension) Lumbar spinal stenosis Parkinson disease Progressive supranuclear palsy Vitamin D deficiency Surgical History Surgical History History of appendectomy History of arthroscopic surgery of shoulder left shoulder S/P ORIF (open reduction internal fixation) fracture Right lower leg Family History Family History Father Asthma Heart disease Mother Ovarian cancer Other Acute myocardial infarction Diabetes mellitus Social History Social History Smoking status: Former smoker Alcohol intake: never Substance use: never Lack of Transportation: No Lack of Food: Never True Current Housing: I Have Housing Concerned About Future Housing: No Difficulty Paying Gas/Electric Bills: No Difficulty Paying for Meds: No C
--- NOTE | 2023-10-14 13:59 | PCSTNOTE ---
Please refer to the Bedside Swallow Evaluation in the EMR. Please note, silent aspiration cannot be ruled out at bedside.
[2023-10-14 16:52] LABS: Glucose Point of Care 114 mg/dl (65-105)
[2023-10-14] MEDS: KETOROLAC 30 MG/ML VIAL (*BKC) IV PUSH (22:52)
[2023-10-15] VITALS (12 sets, daily range): BP systolic 126–146; BP diastolic 49–68; PULSE 62–100; RESP 12–20; TEMP 36–36.6; O2SAT 92–100
[2023-10-15 00:27] LABS: Glucose Point of Care 145 mg/dl (65-105)
[2023-10-15] MEDS: ERYTHROMYCIN OPHTH OINTMENT 1 GM TUBE 1 APPLIC EACH EYE ×3 (05:08→20:38)
[2023-10-15 05:09] LABS: Glucose Point of Care 142 mg/dl (65-105)
[2023-10-15 05:50] LABS: Hematocrit 37.6 % (37.0-47.0); Hemoglobin 12.2 g/dL (12.0-15.0); Immature Platelet Fraction Pct 3.4 % (0.9-11.2); Mean Corpuscular HGB Conc 32.4 g/dl (32-36); Mean Corpuscular Hemoglobin 33.1 pg (26-34); Mean Corpuscular Volume 101.9 fl (80-100); Platelet Count Result 135 k/mm3 (150-375); Red Blood Count 3.69 M/mm3 (4.2-5.4); Red Cell Distribution Width 12.3 % (11.5-14.5); White Blood Count 6.3 K/mm3 (4.5-10.0)
[2023-10-15 06:05] LABS: Alanine Aminotransferase 20 U/L (6-35); Albumin Level 3.5 g/dL (3.5-5.1); Alkaline Phosphatase 85 U/L (38-126); Anion Gap 6 mmol/L (8-16); Aspartate Amino Transferase 27 U/L (14-36); Blood Urea Nitrogen 10 mg/dL (7-17); Calcium 8.9 mg/dL (8.4-10.2); Carbon Dioxide 29 mmol/L (22-30); Chloride 104 mmol/L (98-107); Estimated CRCL calculation 65 ml/min; Estimated Glomerular Filt Rate > 60; Glucose 144 mg/dL (65-110); Potassium 3.6 mmol/L (3.4-5.0); Sodium 139 mmol/L (137-145)
--- NOTE | 2023-10-15 09:36 | PCDIET ---
Discussions with Hospitalist regarding nutrition. NGT is recommend at this time if PEG is unable to be placed over the weekend. If tube feedings start would recommend Glucerna 1.2 at 20 ml/hr advance by 10 ml q 4 hours to goal rate of 55 ml/hr. Flush 30 ml 4 hours. Will continue to monitor.
--- NOTE | 2023-10-15 10:30 | PC.NURSE ---
patient 0800 telemetry showing junctional escape rhythm with 0.84 second pauses. Provider notified. Will continue to monitor.
--- NOTE | 2023-10-15 11:21 | PM.IMPN ---
Progress Note: A&P Assessment and Plan (1) Acute alteration in mental status: Code(s): R41.82 - Altered mental status, unspecified Status: Acute Assessment and Plan: Patient presented to the ED due to altered mental status after being found by stating that she was changed from baseline. According the patient whispers and is very hard to understand. Patient is now not talking and will occasionally nod her head yes or no. CBC, CMP and urine without sign of infection Head CT no acute intracranial process. Chest x-ray no acute cardiopulmonary process. 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 No acute findings. NPO due to altered mental status. IV fluids with NS/D5 Patient was on Macrobid recently that does cause alteration in mental status in the elderly. Will discontinue. Patient's UTI treated to completion. (2) Protein calorie malnutrition: Qualifiers: Protein-calorie malnutrition severity: severe Qualified Code(s): E43 - Unspecified severe protein-calorie malnutrition Code(s): E46 - Unspecified protein-calorie malnutrition Status: Acute Assessment and Plan: Severe malnutrition. Speech therapy evaluation recommending patient's stay NPO status for now. Discussed G-tube with the family and they would like a GI consultation to see if patient would qualify for surgery. Discussed with dietitian and she is in agreement that G-tube is likely necessary. (3) Dementia: Code(s): F03.90 - Unspecified dementia, unspecified severity, without behavioral disturbance, psychotic disturbance, mood disturbance, and anxiety Status: Acute Assessment and Plan: Chronic. Hold home meds while NPO (4) Chronic low back pain with sciatica: Code(s): M54.40 - Lumbago with sciatica, unspecified side; G89.29 - Other chronic pain Status: Acute Assessment and Plan: Pain medication p.r.n. (5) Dysphagia: Qualifiers: Dysphagia type: unspecified Qualified Code(s): R13.10 - Dysphagia, unspecified Code(s): R13.10 - Dysphagia, unspecified Status: Acute Assessment and Plan: IV pantoprazole (6) Parkinson disease: Code(s): G20 - Parkinson's disease Status: Chronic Assessment and Plan: Home medications on hold due to NPO status Subjective Date/time seen: 10/15/23 11:21 Interval history: Discussed patient's care in depth with both her and her son. They would like to wait till this evening to discuss with her entire family whether they would like to proceed with temporary NG placement for tube feedings for moved to hospice care. Discussed with them that prolonging feedings for the patient could cause cardiac dysrhythmias and they understood this. Again I expressed to them multiple times the consequences of not going through with the feedings if that is the direction they were leaning and they understood. Patient's now said that he is leaning more towards hospice but would like to discuss with the rest of his family. Exam Narrative: GENERAL: Comfortable, no acute distress, Cachectic HENMT: moist mucous membranes EYES: inflamed right conjunctiva improving RESPIRATORY: clear to auscultation CARDIO: RRR GI: soft, nontender, bowel sounds present SKIN: no rashes EXTREMITIES: no edema, redness or tenderness Objective Data Vital Signs Vital Signs: Vital Signs - 24 hr 10/14/23 14:30 10/14/23 12:02 10/14/23 16:04 Temperature 97.7 F Pulse Rate 83 70 78 Respiratory Rate 12 Blood Pressure 147/79 H Pulse Oximetry 98 Oxygen Delivery 10/14/23 20:00 10/15/23 00:00 10/14/23 21:15 Temperature 97.3 F L 97.8 F Pulse Rate 78 69 Respiratory Rate 18 18 Blood Pressure 130/64 133/62 Pulse Oximetry 99 94 Oxygen Delivery Room Air 10/14/23 20:00 10/15/23 00:00 10/15/23 03:55 Temperature
[2023-10-15 12:02] LABS: Glucose Point of Care 107 mg/dl (65-105)
--- NOTE | 2023-10-15 13:19 | WPDGIPROGNO ---
Progress Note: A&P Assessment and Plan (1) Dysphagia: Code(s): R13.10 - Dysphagia, unspecified Status: Acute Assessment and Plan: poor interaction, she has not been eating still undecided about g-tube, he will talk to more family members, he is even considering comfort measures if he is ok with tube feeding then in the meantime ok to place DH tube and start tube feeding, early next week we can place G-tube only if family is agreeable. (2) Encephalopathy acute: Code(s): G93.40 - Encephalopathy, unspecified Status: Acute (3) Protein calorie malnutrition: Qualifiers: Protein-calorie malnutrition severity: severe Qualified Code(s): E43 - Unspecified severe protein-calorie malnutrition Code(s): E46 - Unspecified protein-calorie malnutrition Status: Acute (4) Progressive supranuclear palsy: Code(s): G23.1 - Progressive supranuclear ophthalmoplegia [Carlita] Status: Chronic (5) Parkinson disease: Code(s): G20 - Parkinson's disease Status: Chronic (6) Acute UTI: Code(s): N39.0 - Urinary tract infection, site not specified Status: Acute Subjective Date/time seen: 10/15/23 13:19 Interval history: no changes, still not talking at bedside Review of Systems Review of Systems: All systems reviewed & are unremarkable except as noted in HPI and below Exam Const: Other: thin, resting in bed, she is not talking HENMT: Face/Nose/Sinus: Normal nares present Eyes: Sclera: sclerae normal Neck: Neck: supple Resp: Auscultation: clear to auscultation bilaterally Cardio: Rate: regular rate GI: GI Palp: Yes Soft to palpation, No Tenderness to palpation present (GI) and No Guarding due to palpation present (GI) Auscultation: normal bowel sounds Skin: General skin exam: normal color Neuro: Other: awake but she is not talking, lethargic Extrem: General: normal to inspection Psych: Other: unable to assess Objective Data Vital Signs Vital Signs: Vital Signs - 24 hr 10/14/23 14:30 10/14/23 16:04 10/14/23 20:00 Temperature 97.7 F 97.3 F L Pulse Rate 83 78 78 Respiratory Rate 12 18 Blood Pressure 147/79 H 130/64 Pulse Oximetry 98 99 Oxygen Delivery 10/15/23 00:00 10/14/23 21:15 10/14/23 20:00 Temperature 97.8 F Pulse Rate 69 90 Respiratory Rate 18 Blood Pressure 133/62 Pulse Oximetry 94 Oxygen Delivery Room Air 10/15/23 00:00 10/15/23 03:55 10/15/23 03:54 Temperature 96.8 F L 96.8 F L Pulse Rate 73 69 69 Respiratory Rate 16 16 Blood Pressure 127/49 L 127/49 L Pulse Oximetry 97 97 Oxygen Delivery 10/15/23 04:00 10/15/23 10:00 10/15/23 08:00 Temperature 97.1 F L Pulse Rate 67 65 62 Respiratory Rate 12 Blood Pressure 146/65 H Pulse Oximetry 93 Oxygen Delivery Intake/Output Intake/Output: Intake & Output 10/12/23 10/13/23 10/14/23 10/15/23 23:59 23:59 23:59 23:59 Intake Total 1000 1000 2000 1000 Output Total 0 1550 1650 Balance 1000 -452 357 7375 Meds/Results Medications: Active Medications Generic Name Dose Route Start Last Admin Trade Name Freq PRN Reason Stop Dose Admin Acetaminophen 650 mg 10/14/23 23:26 Acetaminophen 650 Mg Suppository RECTAL Q6H PRN Mild Pain (1-3) or Fever Amantadine HCl 100 mg 10/12/23 09:00 10/15/23 10:15 Amantadine Hcl 100 Mg Capsule PO Not Given BID ROBYN Aspirin 81 mg 10/12/23 09:00 10/15/23 10:15 Aspirin 81 Mg Enteric Tablet PO 11/11/23 08:59 Not Given DAILY ROBYN Dextrose 12.5 gm 10/12/23 08:21 10/12/23 08:35 Dextrose 50% 25 Gm/50 Ml Syringe IV PUSH 12.5 gm PRN PRN Administration Hypoglycemia Protocol Erythromycin 1 applic 10/12/23 13:00 10/15/23 07:42 Erythromycin Ophth Ointment 1 Gm Tube EACH EYE 1 applic Q4HWA ROBYN Administration Fluoxetine HCl 10 mg 10/12/23 09:00 10/15/23 10:1
[2023-10-15 18:23] LABS: Glucose Point of Care 109 mg/dl (65-105)
[2023-10-15] MEDS: DEXTROSE 5%/0.45% SOD CHL 1,000 ML 75 ML IV CONT (20:38)
[2023-10-15] MEDS: ACETAMINOPHEN 650 MG SUPPOSITORY RECTAL (20:39)
[2023-10-15 23:40] LABS: Glucose Point of Care 134 mg/dl (65-105)
[2023-10-16] VITALS: PULSE 101
[2023-10-16 04:00] VITALS: BP 115/64; PULSE 70; PULSE 72; RESP 19; TEMP 36.7; O2SAT 99
[2023-10-16] MEDS: DEXTROSE 5%/0.45% SOD CHL 1,000 ML 75 ML IV CONT ×2 (04:37→11:26)
[2023-10-16] MEDS: ERYTHROMYCIN OPHTH OINTMENT 1 GM TUBE 1 APPLIC EACH EYE (04:38)
[2023-10-16] MEDS: ACETAMINOPHEN 650 MG SUPPOSITORY RECTAL (04:38)
[2023-10-16] MEDS: MORPHINE SULFATE (*CRX) 4 MG/ML INJ IV PUSH ×2 (06:11→14:45)
[2023-10-16 06:40] LABS: Glucose Point of Care 142 mg/dl (65-105)
[2023-10-16] MEDS: SCOPOLAMINE 1 MG PATCH 1 PATCH TRANSDERM (08:22)
[2023-10-16 08:43] LABS: Glucose Point of Care 137 mg/dl (65-105)
[2023-10-16 09:46] VITALS: BP 110/60; PULSE 77; RESP 18; TEMP 36.5; O2SAT 96
--- NOTE | 2023-10-16 09:52 | WPDGIPROGNO ---
Progress Note: A&P Assessment and Plan (1) Dysphagia: Code(s): R13.10 - Dysphagia, unspecified Status: Acute Assessment and Plan: poor interaction, she is not eating per RN report family still undecided if they would like to pursue G-tube vs hospice care (2) Encephalopathy acute: Code(s): G93.40 - Encephalopathy, unspecified Status: Acute (3) Protein calorie malnutrition: Qualifiers: Protein-calorie malnutrition severity: severe Qualified Code(s): E43 - Unspecified severe protein-calorie malnutrition Code(s): E46 - Unspecified protein-calorie malnutrition Status: Acute (4) Progressive supranuclear palsy: Code(s): G23.1 - Progressive supranuclear ophthalmoplegia [Carlita] Status: Chronic (5) Parkinson disease: Code(s): G20 - Parkinson's disease Status: Chronic (6) Acute UTI: Code(s): N39.0 - Urinary tract infection, site not specified Status: Acute Subjective Date/time seen: 10/16/23 09:52 Interval history: no changes, she is still lethargic Review of Systems Review of Systems: All systems reviewed & are unremarkable except as noted in HPI and below Exam Const: Other: thin, resting in bed, she is not talking, lethargic HENMT: Face/Nose/Sinus: Normal nares present Eyes: Sclera: sclerae normal Neck: Neck: supple Resp: Auscultation: clear to auscultation bilaterally Cardio: Rate: regular rate GI: GI Palp: Yes Soft to palpation, No Tenderness to palpation present (GI) and No Guarding due to palpation present (GI) Auscultation: normal bowel sounds Skin: General skin exam: normal color Neuro: Other: awake but she is not talking, lethargic Extrem: General: normal to inspection Psych: Other: unable to assess Objective Data Vital Signs Vital Signs: Vital Signs - 24 hr 10/15/23 10:00 10/15/23 12:40 10/15/23 16:40 Temperature 97.1 F L 97.4 F L 97.7 F Pulse Rate 65 66 77 Respiratory Rate 12 12 16 Blood Pressure 146/65 H 132/66 126/58 L Pulse Oximetry 93 98 92 Oxygen Delivery 10/15/23 12:00 10/15/23 16:00 10/15/23 20:00 Temperature 97.7 F Pulse Rate 79 80 86 Respiratory Rate 18 Blood Pressure 142/68 H Pulse Oximetry 100 Oxygen Delivery 10/15/23 20:00 10/15/23 20:00 10/15/23 23:55 Temperature 97.8 F Pulse Rate 100 86 94 Respiratory Rate 18 20 Blood Pressure 129/58 L Pulse Oximetry 100 98 Oxygen Delivery Room Air 10/16/23 00:00 10/16/23 04:00 10/16/23 04:00 Temperature 98.0 F Pulse Rate 101 H 70 72 Respiratory Rate 19 Blood Pressure 115/64 Pulse Oximetry 99 Oxygen Delivery 10/16/23 09:00 10/16/23 09:46 Temperature 97.7 F Pulse Rate 77 Respiratory Rate 18 Blood Pressure 110/60 Pulse Oximetry 96 Oxygen Delivery Room Air Intake/Output Intake/Output: Intake & Output 10/13/23 10/14/23 10/15/23 10/16/23 23:59 23:59 23:59 23:59 Intake Total 1000 2000 1000 1000 Output Total 1550 1650 500 0 Balance -550 063 739 [id number] Meds/Results Medications: Active Medications Generic Name Dose Route Start Last Admin Trade Name Freq PRN Reason Stop Dose Admin Acetaminophen 650 mg 10/14/23 23:26 10/16/23 04:38 Acetaminophen 650 Mg Suppository RECTAL 650 mg Q6H PRN Administration Mild Pain (1-3) or Fever Lorazepam 1 mg 10/16/23 08:10 Lorazepam Inj (*Crx) 2 Mg/Ml Vial IV PUSH Q2H PRN Anxiety or air hunger Morphine Sulfate 4 mg 10/16/23 06:03 10/16/23 06:11 Morphine Sulfate (*Crx) 4 Mg/Ml Inj IV PUSH 4 mg Q6H PRN Administration Pain Rated 7-10 Scopolamine 1 patch 10/16/23 09:00 10/16/23 08:22 Scopolamine 1 Mg Patch TRANSDERM 1 patch Q72HR ROBYN Administration Radiology Results: ITS Impressions Head CT 10/11/23 16:00 IMPRESSION: 1. No acute intracranial abnormality. 2. Age related findings. Chest X-Ray 10/11/23 16:0
[2023-10-16 12:02] LABS: Glucose Point of Care 126 mg/dl (65-105)
--- NOTE | 2023-10-16 13:56 | PM.IMPN ---
Progress Note: A&P Assessment and Plan (1) Acute alteration in mental status: Code(s): R41.82 - Altered mental status, unspecified Status: Acute Assessment and Plan: Patient presented to the ED due to altered mental status after being found by stating that she was changed from baseline. According the patient whispers and is very hard to understand. Patient is now not talking and will occasionally nod her head yes or no. CBC, CMP and urine without sign of infection Head CT no acute intracranial process. Chest x-ray no acute cardiopulmonary process. 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 No acute findings. NPO due to altered mental status. IV fluids with NS/D5 Patient was on Macrobid recently that does cause alteration in mental status in the elderly. Will discontinue. Patient's UTI treated to completion. Family has decided to go through with hospice. Care coordination has been consulted and comfort measures have been put in place. Will keep patient on IV fluids in order for her family to be able to visit her from [place] prior to discontinuing. (2) Protein calorie malnutrition: Qualifiers: Protein-calorie malnutrition severity: severe Qualified Code(s): E43 - Unspecified severe protein-calorie malnutrition Code(s): E46 - Unspecified protein-calorie malnutrition Status: Acute Assessment and Plan: Severe malnutrition. Speech therapy evaluation recommending patient's stay NPO status for now. Discussed G-tube with the family and they would like a GI consultation to see if patient would qualify for surgery. Discussed with dietitian and she is in agreement that G-tube is likely necessary. 10/16 Family has decided to go with hospice. (3) Dementia: Code(s): F03.90 - Unspecified dementia, unspecified severity, without behavioral disturbance, psychotic disturbance, mood disturbance, and anxiety Status: Acute Assessment and Plan: Chronic. Hold home meds while NPO (4) Chronic low back pain with sciatica: Code(s): M54.40 - Lumbago with sciatica, unspecified side; G89.29 - Other chronic pain Status: Acute Assessment and Plan: Pain medication p.r.n. (5) Dysphagia: Qualifiers: Dysphagia type: unspecified Qualified Code(s): R13.10 - Dysphagia, unspecified Code(s): R13.10 - Dysphagia, unspecified Status: Acute Assessment and Plan: IV pantoprazole (6) Parkinson disease: Code(s): G20 - Parkinson's disease Status: Chronic Assessment and Plan: Home medications on hold due to NPO status Subjective Date/time seen: 10/16/23 13:56 Interval history: Family has opted to the patient to hospice care. Comfort measures have been initiated. Patient will need placement into a nursing facility and referrals have been sent out. Continue comfort measures at this time. Family at bedside and answered all their questions to the best of my ability. Exam Narrative: GENERAL: Comfortable, no acute distress, Cachectic RESPIRATORY: clear to auscultation CARDIO: RRR GI: soft, nontender, bowel sounds present SKIN: no rashes EXTREMITIES: no edema, redness or tenderness Objective Data Vital Signs Vital Signs: Vital Signs - 24 hr 10/15/23 16:40 10/15/23 16:00 10/15/23 20:00 Temperature 97.7 F 97.7 F Pulse Rate 77 80 86 Respiratory Rate 16 18 Blood Pressure 126/58 L 142/68 H Pulse Oximetry 92 100 Oxygen Delivery 10/15/23 20:00 10/15/23 20:00 10/15/23 23:55 Temperature 97.8 F Pulse Rate 100 86 94 Respiratory Rate 18 20 Blood Pressure 129/58 L Pulse Oximetry 100 98 Oxygen Delivery Room Air 10/16/23 00:00 10/16/23 04:00 10/16/23 04:00 Temperature 98.0 F Pulse Rate 101 H 70 72 Respiratory Rate 19 Blood Pressure 115/64 Pulse Oximetry 99 Oxygen Delivery 10/16/23
[2023-10-16 14:34] VITALS: BP 111/60; PULSE 74; RESP 14; TEMP 36.2; O2SAT 91
[2023-10-16 17:12] LABS: Glucose Point of Care 130 mg/dl (65-105)
[2023-10-16 20:00] VITALS: BP 109/53; PULSE 69; RESP 17; TEMP 36.4; O2SAT 99
[2023-10-17] MEDS: DEXTROSE 5%/0.45% SOD CHL 1,000 ML 75 ML IV CONT ×2 (01:04→20:22)
[2023-10-17 05:16] VITALS: BP 110/53; PULSE 56; RESP 16; TEMP 36.4; O2SAT 97
--- NOTE | 2023-10-17 11:15 | PM.IMPN ---
Progress Note: A&P Assessment and Plan (1) Acute alteration in mental status: Code(s): R41.82 - Altered mental status, unspecified Status: Acute Assessment and Plan: Patient presented to the ED due to altered mental status after being found by stating that she was changed from baseline. According the patient whispers and is very hard to understand. Patient is now not talking and will occasionally nod her head yes or no. CBC, CMP and urine without sign of infection Head CT no acute intracranial process. Chest x-ray no acute cardiopulmonary process. 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 No acute findings. NPO due to altered mental status. IV fluids with NS/D5 Patient was on Macrobid recently that does cause alteration in mental status in the elderly. Will discontinue. Patient's UTI treated to completion. Family has decided to go through with hospice. Care coordination has been consulted and comfort measures have been put in place. Will keep patient on IV fluids in order for her family to be able to visit her from [place] prior to discontinuing. (2) Protein calorie malnutrition: Qualifiers: Protein-calorie malnutrition severity: severe Qualified Code(s): E43 - Unspecified severe protein-calorie malnutrition Code(s): E46 - Unspecified protein-calorie malnutrition Status: Acute Assessment and Plan: Severe malnutrition. Speech therapy evaluation recommending patient's stay NPO status for now. Discussed G-tube with the family and they would like a GI consultation to see if patient would qualify for surgery. Discussed with dietitian and she is in agreement that G-tube is likely necessary. 10/16 Family has decided to go with hospice. (3) Dementia: Code(s): F03.90 - Unspecified dementia, unspecified severity, without behavioral disturbance, psychotic disturbance, mood disturbance, and anxiety Status: Acute Assessment and Plan: Chronic. Hold home meds while NPO (4) Chronic low back pain with sciatica: Code(s): M54.40 - Lumbago with sciatica, unspecified side; G89.29 - Other chronic pain Status: Acute Assessment and Plan: Pain medication p.r.n. (5) Dysphagia: Qualifiers: Dysphagia type: unspecified Qualified Code(s): R13.10 - Dysphagia, unspecified Code(s): R13.10 - Dysphagia, unspecified Status: Acute Assessment and Plan: IV pantoprazole (6) Parkinson disease: Code(s): G20 - Parkinson's disease Status: Chronic Assessment and Plan: Home medications on hold due to NPO status Subjective Date/time seen: 10/17/23 11:15 Interval history: Comfort measures. Waiting on placement into a nursing facility so patient can discharge there on hospice. Exam Narrative: GENERAL: Comfortable, no acute distress, Cachectic RESPIRATORY: clear to auscultation CARDIO: RRR GI: soft, nontender, bowel sounds present SKIN: no rashes EXTREMITIES: no edema, redness or tenderness Objective Data Vital Signs Vital Signs: Vital Signs - 24 hr 10/16/23 14:34 10/16/23 20:00 10/16/23 20:00 Temperature 97.2 F L 97.5 F L Pulse Rate 74 69 69 Respiratory Rate 14 17 17 Blood Pressure 111/60 109/53 L Pulse Oximetry 91 99 99 Oxygen Delivery Room Air 10/17/23 05:16 Temperature 97.6 F Pulse Rate 56 L Respiratory Rate 16 Blood Pressure 110/53 L Pulse Oximetry 97 Oxygen Delivery Intake/Output Intake/Output: Intake & Output 10/14/23 10/15/23 10/16/23 10/17/23 23:59 23:59 23:59 23:59 Intake Total 2000 1000 1000 1000 Output Total 1650 500 0 300 Balance 403 341 2110 700 Meds/Results Medications: Active Medications Generic Name Dose Route Start Last Admin Trade Name Freq PRN Reason Stop Dose Admin Acetaminophen 650 mg 10/14/23 23:26 10/16/23 04:38 Acetaminophen 650 Mg Supposi
[2023-10-17] MEDS: MORPHINE SULFATE (*CRX) 4 MG/ML INJ IV PUSH ×2 (12:07→20:21)
[2023-10-17 14:00] VITALS: BP 122/57; PULSE 9; RESP 14; TEMP 36.4; O2SAT 100
[2023-10-17 19:50] VITALS: BP 131/59; PULSE 81; RESP 18; TEMP 36.9; O2SAT 98
[2023-10-17 20:00] VITALS: PULSE 81; RESP 18; O2SAT 98
[2023-10-18 05:57] VITALS: BP 115/54; PULSE 85; RESP 18; TEMP 37.3; O2SAT 98
[2023-10-18] MEDS: DEXTROSE 5%/0.45% SOD CHL 1,000 ML 75 ML IV CONT ×2 (07:03→19:48)
[2023-10-18 09:31] VITALS: BP 119/58; PULSE 79; RESP 12; TEMP 37.3; O2SAT 95
--- NOTE | 2023-10-18 09:34 | PCNFU ---
Nutrition Follow-Up Complete: Severe Protein Calorie Malnutrition as related to inadequate protein-energy intake with increased protein-energy needs in setting of chronic disease (parkinsons/dementia) as evidenced by minimal oral intake reported by , severe muscle wasting(temporalis) and moderate subcutaneous fat loss (orbital fat pad). Meet estimated nutritional needs - Not able to meet goal. Family decided against PEG tube placement. Pt is to discharge on hospice. Goal: Pt current nutrition is NPO awaiting discharge on hospice. Nutrition recommendation: None. Please consult if any changes. Last recorded weight is 42 kg. Bowel Motility: No BMs charted Labs Reviewed: No new labs Meds Noted: Comfort care Skin: No pressure injuries Additional Notes: Awaiting discharge on hospice. No nutrition recommendations. Will monitor weight,labs, skin, meds, diet orders every Tuesday and Tuesday.
[2023-10-18] MEDS: MORPHINE SULFATE (*CRX) 4 MG/ML INJ IV PUSH (11:59)
[2023-10-18 13:40] VITALS: BP 120/69; PULSE 87; RESP 12; TEMP 37; O2SAT 98
--- NOTE | 2023-10-18 14:55 | PM.IMPN ---
Progress Note: A&P Assessment and Plan (1) Acute alteration in mental status: Code(s): R41.82 - Altered mental status, unspecified Status: Acute Assessment and Plan: Patient presented to the ED due to altered mental status after being found by stating that she was changed from baseline. According the patient whispers and is very hard to understand. Patient is now not talking and will occasionally nod her head yes or no. CBC, CMP and urine without sign of infection Head CT no acute intracranial process. Chest x-ray no acute cardiopulmonary process. 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 No acute findings. NPO due to altered mental status. IV fluids with NS/D5 Patient was on Macrobid recently that does cause alteration in mental status in the elderly. Will discontinue. Patient's UTI treated to completion. Family has decided to go through with hospice. Care coordination has been consulted and comfort measures have been put in place. Will keep patient on IV fluids in order for her family to be able to visit her from [place] prior to discontinuing. (2) Protein calorie malnutrition: Qualifiers: Protein-calorie malnutrition severity: severe Qualified Code(s): E43 - Unspecified severe protein-calorie malnutrition Code(s): E46 - Unspecified protein-calorie malnutrition Status: Acute Assessment and Plan: Severe malnutrition. Speech therapy evaluation recommending patient's stay NPO status for now. Discussed G-tube with the family and they would like a GI consultation to see if patient would qualify for surgery. Discussed with dietitian and she is in agreement that G-tube is likely necessary. 10/16 Family has decided to go with hospice. (3) Dementia: Code(s): F03.90 - Unspecified dementia, unspecified severity, without behavioral disturbance, psychotic disturbance, mood disturbance, and anxiety Status: Acute Assessment and Plan: Chronic. Hold home meds while NPO (4) Chronic low back pain with sciatica: Code(s): M54.40 - Lumbago with sciatica, unspecified side; G89.29 - Other chronic pain Status: Acute Assessment and Plan: Pain medication p.r.n. (5) Dysphagia: Qualifiers: Dysphagia type: unspecified Qualified Code(s): R13.10 - Dysphagia, unspecified Code(s): R13.10 - Dysphagia, unspecified Status: Acute Assessment and Plan: IV pantoprazole (6) Parkinson disease: Code(s): G20 - Parkinson's disease Status: Chronic Assessment and Plan: Home medications on hold due to NPO status Subjective Date/time seen: 10/18/23 14:55 Interval history: Still waiting on family [place]. Once they have arrived patient's IV fluids will be discontinued. Hopeful that this will be tomorrow. Information was given to the family by care coordination regarding nursing homes. family has yet to make a decision. Care coordination continuing to follow. Once family makes a decision she should be able to discharge. Exam Narrative: GENERAL: Comfortable, no acute distress, Cachectic RESPIRATORY: clear to auscultation CARDIO: RRR GI: soft, nontender, bowel sounds present SKIN: no rashes EXTREMITIES: no edema, redness or tenderness Objective Data Vital Signs Vital Signs: Vital Signs - 24 hr 10/17/23 19:50 10/17/23 20:00 10/18/23 05:57 Temperature 98.4 F 99.2 F Pulse Rate 81 81 85 Respiratory Rate 18 18 18 Blood Pressure 131/59 L 115/54 L Pulse Oximetry 98 98 98 Oxygen Delivery Room Air 10/18/23 09:31 10/18/23 08:00 10/18/23 13:40 Temperature 99.2 F 98.6 F Pulse Rate 79 87 Respiratory Rate 12 12 Blood Pressure 119/58 L 120/69 Pulse Oximetry 95 98 Oxygen Delivery Room Air Intake/Output Intake/Output: Intake & Output 10/15/23 10/16/23 10/17/23 10/18/23
[2023-10-18 20:00] VITALS: PULSE 76; RESP 17; O2SAT 95
[2023-10-18 21:03] VITALS: BP 109/49; PULSE 76; RESP 17; TEMP 37.1; O2SAT 95
[2023-10-19 05:45] VITALS: BP 125/59; PULSE 76; RESP 17; TEMP 36.8; O2SAT 91
[2023-10-19] MEDS: MORPHINE SULFATE (*CRX) 4 MG/ML INJ IV PUSH (06:19)
[2023-10-19] MEDS: SCOPOLAMINE 1 MG PATCH 1 PATCH TRANSDERM (07:59)
[2023-10-19] MEDS: DEXTROSE 5%/0.45% SOD CHL 1,000 ML 75 ML IV CONT (07:59)
[2023-10-19] MEDS: LORazepam INJ (*CRX) 2 MG/ML VIAL 1 MG IV PUSH (08:00)
--- NOTE | 2023-10-19 12:21 | PC.NURSE ---
Family at bedside and took off all of patient jewelry and took home.
--- NOTE | 2023-10-19 12:33 | PC.NURSE ---
At approximately 0805 RN was in pt's room administering IV medication after witnessing patient in distress/struggling to breathe. At 0808 no vital signs were observed and charge nurse was called into the room where patient was pronounced .
--- NOTE | 2023-10-19 12:39 | PM.DDS ---
Discharge Summary Date and Time Date of : 10/19/23 Time of : 08:08 Provider Pronounced By: Charla Rojas RN Probable Cause of Probable Cause of : Cardiopulmonary arrest End stage dementia Summary Hospital Course: Patient presented to the ED on due to altered mental status after being found by stating that she was changed from baseline.? According the patient whispers and is very hard to understand.? Patient is now not talking and will occasionally nod her head yes or no. CBC, CMP and urine without sign of infection Head CT no acute intracranial process.? Chest x-ray no acute cardiopulmonary process.? 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 No acute findings. NPO due to altered mental status.? IV fluids with NS/D5 Patient was on Macrobid recently that does cause alteration in mental status in the elderly.? Will discontinue.? Patient's UTI treated to completion. No change in mentation with this. Family has decided to go through with hospice.? ? Care coordination has been consulted and comfort measures have been put in place.? Will keep patient on IV fluids in order for her family to be able to visit her from [place] prior to discontinuing. Additional Data Confirmation of as documented by pronouncing clinician: Pupillary Reflex, Palpable Pulses, Response to Stimuli, Heart Tones and Breath Sounds Name of Provider Notified: Vonda Rojas PROBATION OFFICER Time Provider Notified: 08:20 Provider Requests Autopsy: No Family Requests Autopsy: No Crating And Moving Estimator Notified: Yes Date [facility] Notified of : 10/19/23 Time [facility] Notified of : 08:35 DS: Providers Provider Date of admission: 10/13/23 15:57 Primary care physician: Dillon Alegria MD Consults: 10/14/23 11:02 Consult to Physician Routine Comment: Spoke to 10.14.23 @ 1688 ([facility]) Consulting Provider: Syed Hernandez lime sludge kiln operator/MD group to consult: GI Reason for consultation: evaluation for PEG tube Has provider been notified: Yes 10/15/23 Care Coordination Consult Routine Comment: Reason for Consult:: Hospice Referral Attending physician on discharge: Saturnino Syed
--- NOTE | 2023-10-19 13:11 | PC.NURSE ---
IV catheter and urinary Jennings catheter removed.
== END 2023-10-19 08:08 | disposition expired | DRG 947 ==
LOC: ANHED 20:00 → ANH2MED 21:20
PROVIDERS: Internal Medicine Critical Care Medicine; Admitting Provider Internal Medicine; Emergency Provider Emergency Medicine; PCP Family Medicine Adolescent Medicine; Visit Provider Nurse Practitioner Family
DX: R41.82 Altered mental status, unspecified (principal); E43 Unspecified severe protein-calorie malnutrition; Z68.1 Body mass index [BMI] 19.9 or less, adult; G23.1 Progressive supranuclear ophthalmoplegia [Steele-Richardson-Olszewski]; T37.8X5A Adverse effect of other specified systemic anti-infectives and antiparasitics, initial encounter; G20.A1 Parkinson's disease without dyskinesia, without mention of fluctuations; F02.80 Dementia in other diseases classified elsewhere, unspecified severity, without behavioral disturbance, psychotic disturbance, mood disturbance, and anxiety; R56.9 Unspecified convulsions; R13.10 Dysphagia, unspecified; R64 Cachexia; I46.9 Cardiac arrest, cause unspecified; E11.9 Type 2 diabetes mellitus without complications; I10 Essential (primary) hypertension; M48.061 Spinal stenosis, lumbar region without neurogenic claudication; M54.40 Lumbago with sciatica, unspecified side; G89.29 Other chronic pain; L89.90 Pressure ulcer of unspecified site, unspecified stage; R62.7 Adult failure to thrive; M21.371 Foot drop, right foot; M21.372 Foot drop, left foot; Z79.82 Long term (current) use of aspirin; Z90.49 Acquired absence of other specified parts of digestive tract; Z74.01 Bed confinement status; Z87.891 Personal history of nicotine dependence; Z51.5 Encounter for palliative care
CPT/HCPCS: 36415; 36600; 70450; 70553; 71045; 80053; 81003; 82805; 82948; 84484; 85025; 85027; 85055; 85610; 92610; 93005; 96374; 96375; 99285; A9270; A9577; G0378; J1885; J1953; J2060; J2270; J3480; J7040